=== PATIENT | female | born 1935 | race Caucasian/White ===

== ENCOUNTER → 2020-07-25 | Outpatient (BNVA) | payer MEDICARE, SELFPAY | PROVIDERS: PCP Internal Medicine Endocrinology, Diabetes & Metabolism; Referring Provider Internal Medicine Endocrinology, Diabetes & Metabolism; Visit Provider Internal Medicine Cardiovascular Disease | DX: Z79.01 Long term (current) use of anticoagulants (principal) ==

== ENCOUNTER → 2020-08-22 11:31 | Outpatient (BNVA) | payer MEDICARE, SELFPAY | PROVIDERS: PCP Internal Medicine Endocrinology, Diabetes & Metabolism; Visit Provider Internal Medicine | DX: I48.20 Chronic atrial fibrillation, unspecified (principal); Z51.81 Encounter for therapeutic drug level monitoring; Z79.01 Long term (current) use of anticoagulants | CPT/HCPCS: 85610; 99211 ==

== ENCOUNTER → 2020-09-26 11:41 | Outpatient (BNVA) | payer MEDICARE, SELFPAY | PROVIDERS: PCP Internal Medicine Endocrinology, Diabetes & Metabolism; Visit Provider Internal Medicine | DX: I48.20 Chronic atrial fibrillation, unspecified (principal); Z51.81 Encounter for therapeutic drug level monitoring; Z79.01 Long term (current) use of anticoagulants | CPT/HCPCS: 85610; 99211 ==

== ENCOUNTER → 2020-10-24 11:32 | Outpatient (BNVA) | payer MEDICARE, SELFPAY | PROVIDERS: PCP Internal Medicine Endocrinology, Diabetes & Metabolism; Visit Provider Internal Medicine | DX: I48.20 Chronic atrial fibrillation, unspecified (principal); Z51.81 Encounter for therapeutic drug level monitoring; Z79.01 Long term (current) use of anticoagulants | CPT/HCPCS: 85610; 99211 ==

== ENCOUNTER → 2020-11-21 11:31 | Outpatient (BNVA) | payer MEDICARE, SELFPAY | PROVIDERS: PCP Internal Medicine Endocrinology, Diabetes & Metabolism; Visit Provider Internal Medicine | DX: I48.20 Chronic atrial fibrillation, unspecified (principal); Z51.81 Encounter for therapeutic drug level monitoring; Z79.01 Long term (current) use of anticoagulants | CPT/HCPCS: 85610; 99211 ==

== ENCOUNTER → 2020-12-19 11:31 | Outpatient (BNVA) | payer MEDICARE, SELFPAY | PROVIDERS: PCP Internal Medicine Endocrinology, Diabetes & Metabolism; Visit Provider Internal Medicine | DX: I48.20 Chronic atrial fibrillation, unspecified (principal); Z51.81 Encounter for therapeutic drug level monitoring; Z79.01 Long term (current) use of anticoagulants | CPT/HCPCS: 85610; 99211 ==

== ENCOUNTER → 2021-03-11 11:35 | Outpatient (BNVA) | payer MEDICARE, SELFPAY | PROVIDERS: PCP Internal Medicine Endocrinology, Diabetes & Metabolism; Visit Provider Internal Medicine | DX: I48.20 Chronic atrial fibrillation, unspecified (principal); Z51.81 Encounter for therapeutic drug level monitoring; Z79.01 Long term (current) use of anticoagulants | CPT/HCPCS: 85610; 99211 ==

== ENCOUNTER → 2021-04-08 11:18 | Outpatient (BNVA) | payer MEDICARE, SELFPAY | PROVIDERS: PCP Internal Medicine Endocrinology, Diabetes & Metabolism; Visit Provider Internal Medicine | DX: I48.20 Chronic atrial fibrillation, unspecified (principal); Z51.81 Encounter for therapeutic drug level monitoring; Z79.01 Long term (current) use of anticoagulants | CPT/HCPCS: 85610; 99211 ==

== ENCOUNTER → 2021-05-01 11:32 | Outpatient (BNVA) | payer MEDICARE, SELFPAY | PROVIDERS: PCP Internal Medicine Endocrinology, Diabetes & Metabolism; Visit Provider Internal Medicine | DX: I48.20 Chronic atrial fibrillation, unspecified (principal); Z51.81 Encounter for therapeutic drug level monitoring; Z79.01 Long term (current) use of anticoagulants | CPT/HCPCS: 85610; 99211 ==

== ENCOUNTER → 2021-06-05 11:40 | Outpatient (BNVA) | payer MEDICARE, SELFPAY | PROVIDERS: PCP Internal Medicine Endocrinology, Diabetes & Metabolism; Visit Provider Internal Medicine | DX: I48.20 Chronic atrial fibrillation, unspecified (principal); Z51.81 Encounter for therapeutic drug level monitoring; Z79.01 Long term (current) use of anticoagulants | CPT/HCPCS: 85610; 99211 ==

== ENCOUNTER → 2021-07-02 15:26 | Outpatient (BNVA) | payer MEDICARE, SELFPAY | PROVIDERS: PCP Internal Medicine Endocrinology, Diabetes & Metabolism; Visit Provider Internal Medicine | DX: I48.20 Chronic atrial fibrillation, unspecified (principal); Z51.81 Encounter for therapeutic drug level monitoring; Z79.01 Long term (current) use of anticoagulants | CPT/HCPCS: 85610; 99211 ==

== ENCOUNTER → 2021-07-23 15:47 | Outpatient (BNVA) | payer MEDICARE, SELFPAY | PROVIDERS: PCP Internal Medicine Endocrinology, Diabetes & Metabolism; Visit Provider Internal Medicine | DX: I48.20 Chronic atrial fibrillation, unspecified (principal); Z51.81 Encounter for therapeutic drug level monitoring; Z79.01 Long term (current) use of anticoagulants | CPT/HCPCS: 85610; 99211 ==

== ENCOUNTER → 2021-09-05 15:49 | Outpatient (BNVA) | payer MEDICARE, SELFPAY | PROVIDERS: PCP Internal Medicine Endocrinology, Diabetes & Metabolism; Visit Provider Internal Medicine ==

== ENCOUNTER → 2021-09-08 14:17 | Outpatient (BNVA) | payer MEDICARE, SELFPAY | PROVIDERS: PCP Internal Medicine Endocrinology, Diabetes & Metabolism; Visit Provider Internal Medicine ==

== ENCOUNTER → 2021-09-15 14:24 | Outpatient (BNVA) | payer MEDICARE, SELFPAY | PROVIDERS: PCP Internal Medicine Endocrinology, Diabetes & Metabolism; Visit Provider Internal Medicine ==

== ENCOUNTER → 2021-09-22 11:58 | Outpatient (BNVA) | payer MEDICARE, SELFPAY | PROVIDERS: PCP Internal Medicine Cardiovascular Disease; Visit Provider Internal Medicine | DX: I48.20 Chronic atrial fibrillation, unspecified (principal); Z51.81 Encounter for therapeutic drug level monitoring; Z79.01 Long term (current) use of anticoagulants | CPT/HCPCS: Q3014 ==

== ENCOUNTER → 2021-09-29 16:41 | Outpatient (BNVA) | payer MEDICARE, SELFPAY | PROVIDERS: PCP Internal Medicine Cardiovascular Disease; Visit Provider Internal Medicine | DX: I48.20 Chronic atrial fibrillation, unspecified (principal); Z51.81 Encounter for therapeutic drug level monitoring; Z79.01 Long term (current) use of anticoagulants | CPT/HCPCS: Q3014 ==

== ENCOUNTER → 2021-10-06 15:40 | Outpatient (BNVA) | payer MEDICARE, SELFPAY | PROVIDERS: PCP Internal Medicine Cardiovascular Disease; Visit Provider Internal Medicine | DX: I48.20 Chronic atrial fibrillation, unspecified (principal) | CPT/HCPCS: Q3014 ==

== ENCOUNTER → 2021-10-10 11:36 | Outpatient (BNVA) | payer MEDICARE, SELFPAY | PROVIDERS: PCP Internal Medicine Cardiovascular Disease; Visit Provider Internal Medicine | DX: I48.20 Chronic atrial fibrillation, unspecified (principal) | CPT/HCPCS: Q3014 ==

== ENCOUNTER → 2021-10-15 11:56 | Outpatient (BNVA) | payer MEDICARE, SELFPAY | PROVIDERS: PCP Internal Medicine Cardiovascular Disease; Visit Provider Internal Medicine ==

== ENCOUNTER → 2021-10-22 14:38 | Outpatient (BNVA) | payer MEDICARE, SELFPAY | PROVIDERS: PCP Internal Medicine Cardiovascular Disease; Visit Provider Internal Medicine ==

== ENCOUNTER → 2021-10-29 11:39 | Outpatient (BNVA) | payer MEDICARE, SELFPAY | PROVIDERS: PCP Internal Medicine Cardiovascular Disease; Visit Provider Internal Medicine | DX: I48.20 Chronic atrial fibrillation, unspecified (principal); Z51.81 Encounter for therapeutic drug level monitoring; Z79.01 Long term (current) use of anticoagulants | CPT/HCPCS: Q3014 ==

== ENCOUNTER 2021-11-03 11:41 | Outpatient (REF) | payer MEDICARE, SELFPAY ==
[2021-11-03 14:39] LABS: Alanine Aminotransferase 12 U/L (0-31); Albumin Level 3.5 g/dL (3.5-5.0); Alkaline Phosphatase 96 U/L (39-117); Anion Gap 11 (12-20); Aspartate Amino Transferase 12 U/L (5-31); Bilirubin Total 0.9 mg/dL (0.0-1.0); Blood Urea Nitrogen 13 mg/dL (9-16); Calcium 9.5 mg/dL (8.4-10.2); Carbon Dioxide 30 mmol/L (22-29); Chloride 104 mmol/L (96-108); Estimated Glomerular Filt Rate 54; Glucose Random 102 mg/dL (60-115); Potassium 3.5 mmol/L (3.3-5.1); Sodium 141 mmol/L (135-145); Total Protein 6.6 g/dL (6.5-8.0)
== END 2021-11-03 11:42 | disposition home or self-care (01) ==
LOC: HO.HMGCLNP 11:41
PROVIDERS: Visit Provider Internal Medicine Endocrinology, Diabetes & Metabolism
DX: I11.0 Hypertensive heart disease with heart failure (principal); I50.9 Heart failure, unspecified; I48.20 Chronic atrial fibrillation, unspecified; Z51.81 Encounter for therapeutic drug level monitoring; Z79.01 Long term (current) use of anticoagulants
CPT/HCPCS: 80053; Q3014

== ENCOUNTER → 2021-11-11 15:28 | Outpatient (BNVA) | payer MEDICARE, SELFPAY | PROVIDERS: PCP Internal Medicine Cardiovascular Disease; Visit Provider Internal Medicine | DX: I48.20 Chronic atrial fibrillation, unspecified (principal); Z51.81 Encounter for therapeutic drug level monitoring; Z79.01 Long term (current) use of anticoagulants | CPT/HCPCS: Q3014 ==

== ENCOUNTER → 2021-11-14 15:29 | Outpatient (BNVA) | payer MEDICARE, SELFPAY | PROVIDERS: PCP Internal Medicine Cardiovascular Disease; Visit Provider Internal Medicine | DX: I48.20 Chronic atrial fibrillation, unspecified (principal); Z51.81 Encounter for therapeutic drug level monitoring; Z79.01 Long term (current) use of anticoagulants | CPT/HCPCS: Q3014 ==

== ENCOUNTER → 2021-11-20 14:52 | Outpatient (BNVA) | payer MEDICARE, SELFPAY | PROVIDERS: PCP Internal Medicine Cardiovascular Disease; Visit Provider Internal Medicine | DX: I48.20 Chronic atrial fibrillation, unspecified (principal); Z51.81 Encounter for therapeutic drug level monitoring; Z79.01 Long term (current) use of anticoagulants | CPT/HCPCS: Q3014 ==

== ENCOUNTER → 2021-11-27 14:31 | Outpatient (BNVA) | payer MEDICARE, SELFPAY | PROVIDERS: PCP Internal Medicine Cardiovascular Disease; Visit Provider Internal Medicine | DX: Z13.89 Encounter for screening for other disorder (principal) ==

== ENCOUNTER → 2021-12-04 12:01 | Outpatient (BNVA) | payer MEDICARE, SELFPAY | PROVIDERS: PCP Internal Medicine Cardiovascular Disease; Visit Provider Internal Medicine | DX: I48.20 Chronic atrial fibrillation, unspecified (principal) | CPT/HCPCS: Q3014 ==

== ENCOUNTER → 2021-12-11 14:34 | Outpatient (BNVA) | payer MEDICARE, SELFPAY | PROVIDERS: PCP Internal Medicine Cardiovascular Disease; Visit Provider Internal Medicine | DX: I48.20 Chronic atrial fibrillation, unspecified (principal); Z51.81 Encounter for therapeutic drug level monitoring; Z79.01 Long term (current) use of anticoagulants | CPT/HCPCS: Q3014 ==

== ENCOUNTER → 2021-12-25 12:08 | Outpatient (BNVA) | payer MEDICARE, SELFPAY | PROVIDERS: PCP Internal Medicine Cardiovascular Disease; Visit Provider Internal Medicine | DX: Z13.89 Encounter for screening for other disorder (principal) ==

== ENCOUNTER → 2022-01-08 11:31 | Outpatient (BNVA) | payer MEDICARE, SELFPAY | PROVIDERS: PCP Internal Medicine Cardiovascular Disease; Visit Provider Internal Medicine | DX: Z13.89 Encounter for screening for other disorder (principal) ==

== ENCOUNTER → 2022-01-22 13:57 | Outpatient (BNVA) | payer MEDICARE, SELFPAY | PROVIDERS: PCP Internal Medicine Cardiovascular Disease; Visit Provider Internal Medicine | DX: I48.20 Chronic atrial fibrillation, unspecified (principal); Z51.81 Encounter for therapeutic drug level monitoring; Z79.01 Long term (current) use of anticoagulants | CPT/HCPCS: Q3014 ==

== ENCOUNTER → 2022-01-29 12:12 | Outpatient (BNVA) | payer MEDICARE, SELFPAY | PROVIDERS: PCP Internal Medicine Cardiovascular Disease; Visit Provider Internal Medicine | DX: I48.20 Chronic atrial fibrillation, unspecified (principal); Z51.81 Encounter for therapeutic drug level monitoring; Z79.01 Long term (current) use of anticoagulants | CPT/HCPCS: Q3014 ==

== ENCOUNTER → 2022-02-05 14:29 | Outpatient (BNVA) | payer MEDICARE, SELFPAY | PROVIDERS: PCP Internal Medicine Cardiovascular Disease; Visit Provider Internal Medicine | DX: Z13.89 Encounter for screening for other disorder (principal) ==

== ENCOUNTER → 2022-02-12 11:39 | Outpatient (BNVA) | payer MEDICARE, SELFPAY | PROVIDERS: PCP Internal Medicine Cardiovascular Disease; Visit Provider Internal Medicine | DX: Z13.89 Encounter for screening for other disorder (principal) ==

== ENCOUNTER → 2022-02-19 14:05 | Outpatient (BNVA) | payer MEDICARE, SELFPAY | PROVIDERS: PCP Internal Medicine Cardiovascular Disease; Visit Provider Internal Medicine | DX: Z13.89 Encounter for screening for other disorder (principal) ==

== ENCOUNTER → 2022-02-26 12:17 | Outpatient (BNVA) | payer MEDICARE, SELFPAY | PROVIDERS: PCP Internal Medicine Cardiovascular Disease; Visit Provider Internal Medicine | DX: Z13.89 Encounter for screening for other disorder (principal) ==

== ENCOUNTER → 2022-03-12 15:27 | Outpatient (BNVA) | payer MEDICARE, SELFPAY | PROVIDERS: PCP Internal Medicine Cardiovascular Disease; Visit Provider Internal Medicine | DX: I48.20 Chronic atrial fibrillation, unspecified (principal); Z79.01 Long term (current) use of anticoagulants; Z51.81 Encounter for therapeutic drug level monitoring | CPT/HCPCS: 85610; 99211 ==

== ENCOUNTER → 2022-04-02 15:27 | Outpatient (BNVA) | payer MEDICARE, SELFPAY | PROVIDERS: PCP Internal Medicine Cardiovascular Disease; Visit Provider Internal Medicine | DX: I48.20 Chronic atrial fibrillation, unspecified (principal); Z79.01 Long term (current) use of anticoagulants; Z51.81 Encounter for therapeutic drug level monitoring | CPT/HCPCS: 85610; 99211 ==

== ENCOUNTER → 2022-04-29 14:58 | Outpatient (BNVA) | payer MEDICARE, SELFPAY | PROVIDERS: PCP Internal Medicine Cardiovascular Disease; Visit Provider Internal Medicine | DX: I48.20 Chronic atrial fibrillation, unspecified (principal); Z51.81 Encounter for therapeutic drug level monitoring; Z79.01 Long term (current) use of anticoagulants | CPT/HCPCS: 85610; 99211 ==

== ENCOUNTER → 2022-05-28 15:13 | Outpatient (BNVA) | payer MEDICARE, SELFPAY | PROVIDERS: PCP Internal Medicine Cardiovascular Disease; Visit Provider Internal Medicine | DX: I48.20 Chronic atrial fibrillation, unspecified (principal); Z79.01 Long term (current) use of anticoagulants; Z51.81 Encounter for therapeutic drug level monitoring | CPT/HCPCS: 85610; 99211 ==

== ENCOUNTER → 2022-06-25 15:26 | Outpatient (BNVA) | payer MEDICARE, SELFPAY | PROVIDERS: PCP Internal Medicine Cardiovascular Disease; Visit Provider Internal Medicine | DX: I48.20 Chronic atrial fibrillation, unspecified (principal); Z51.81 Encounter for therapeutic drug level monitoring; Z79.01 Long term (current) use of anticoagulants | CPT/HCPCS: 85610; 99211 ==

== ENCOUNTER → 2022-07-30 15:26 | Outpatient (BNVA) | payer MEDICARE, SELFPAY | PROVIDERS: PCP Internal Medicine Cardiovascular Disease; Visit Provider Internal Medicine | DX: I48.20 Chronic atrial fibrillation, unspecified (principal); Z79.01 Long term (current) use of anticoagulants; Z51.81 Encounter for therapeutic drug level monitoring | CPT/HCPCS: 85610; 99211 ==

== ENCOUNTER → 2022-09-03 15:26 | Outpatient (BNVA) | payer MEDICARE, SELFPAY | PROVIDERS: PCP Internal Medicine Cardiovascular Disease; Visit Provider Internal Medicine | DX: I48.20 Chronic atrial fibrillation, unspecified (principal); Z79.01 Long term (current) use of anticoagulants; Z51.81 Encounter for therapeutic drug level monitoring | CPT/HCPCS: 85610; 99211 ==

== ENCOUNTER → 2022-10-08 15:13 | Outpatient (BNVA) | payer MEDICARE, SELFPAY | PROVIDERS: PCP Internal Medicine Cardiovascular Disease; Visit Provider Internal Medicine | DX: I48.20 Chronic atrial fibrillation, unspecified (principal); Z79.01 Long term (current) use of anticoagulants; Z51.81 Encounter for therapeutic drug level monitoring | CPT/HCPCS: 85610; 99211 ==

== ENCOUNTER → 2022-11-13 15:15 | Outpatient (BNVA) | payer MEDICARE, SELFPAY | PROVIDERS: PCP Internal Medicine Cardiovascular Disease; Visit Provider Internal Medicine | DX: I48.20 Chronic atrial fibrillation, unspecified (principal); Z79.01 Long term (current) use of anticoagulants; Z51.81 Encounter for therapeutic drug level monitoring | CPT/HCPCS: 85610; 99211 ==

== ENCOUNTER → 2022-12-17 15:15 | Outpatient (BNVA) | payer MEDICARE, SELFPAY | PROVIDERS: PCP Internal Medicine Cardiovascular Disease; Visit Provider Internal Medicine | DX: I48.20 Chronic atrial fibrillation, unspecified (principal); Z79.01 Long term (current) use of anticoagulants; Z51.81 Encounter for therapeutic drug level monitoring | CPT/HCPCS: 85610; 99211 ==

== ENCOUNTER → 2023-01-21 15:26 | Outpatient (BNVA) | payer MEDICARE, SELFPAY | PROVIDERS: PCP Internal Medicine Cardiovascular Disease; Visit Provider Internal Medicine | DX: I48.20 Chronic atrial fibrillation, unspecified (principal); Z79.01 Long term (current) use of anticoagulants; Z51.81 Encounter for therapeutic drug level monitoring | CPT/HCPCS: 85610; 99211 ==

== ENCOUNTER → 2023-02-04 15:26 | Outpatient (BNVA) | payer MEDICARE, SELFPAY | PROVIDERS: PCP Internal Medicine Cardiovascular Disease; Visit Provider Internal Medicine | DX: I48.20 Chronic atrial fibrillation, unspecified (principal); Z51.81 Encounter for therapeutic drug level monitoring; Z79.01 Long term (current) use of anticoagulants | CPT/HCPCS: 85610; 99211 ==

== ENCOUNTER → 2023-03-05 15:33 | Outpatient (BNVA) | payer MEDICARE, SELFPAY | PROVIDERS: PCP Internal Medicine Cardiovascular Disease; Visit Provider Internal Medicine | DX: I48.20 Chronic atrial fibrillation, unspecified (principal); Z79.01 Long term (current) use of anticoagulants; Z51.81 Encounter for therapeutic drug level monitoring | CPT/HCPCS: 85610; 99211 ==

== ENCOUNTER → 2023-03-19 15:11 | Outpatient (BNVA) | payer MEDICARE, SELFPAY | PROVIDERS: PCP Internal Medicine Cardiovascular Disease; Visit Provider Internal Medicine | DX: I48.20 Chronic atrial fibrillation, unspecified (principal); Z79.01 Long term (current) use of anticoagulants; Z51.81 Encounter for therapeutic drug level monitoring | CPT/HCPCS: 85610; 99211 ==

== ENCOUNTER → 2023-03-25 15:19 | Outpatient (BNVA) | payer MEDICARE, SELFPAY | PROVIDERS: PCP Internal Medicine Cardiovascular Disease; Visit Provider Internal Medicine | DX: I48.20 Chronic atrial fibrillation, unspecified (principal); Z79.01 Long term (current) use of anticoagulants; Z51.81 Encounter for therapeutic drug level monitoring | CPT/HCPCS: 85610; 99211 ==

== ENCOUNTER → 2023-04-08 15:11 | Outpatient (BNVA) | payer MEDICARE, SELFPAY | PROVIDERS: PCP Internal Medicine Cardiovascular Disease; Visit Provider Internal Medicine | DX: I48.20 Chronic atrial fibrillation, unspecified (principal); Z79.01 Long term (current) use of anticoagulants; Z51.81 Encounter for therapeutic drug level monitoring | CPT/HCPCS: 85610; 99211 ==

== ENCOUNTER 2023-05-06 15:24 | Outpatient (AMB) | payer MEDICARE, SELFPAY ==
--- NOTE | 2023-05-06 15:28 | MHC.OFFVISCO ---
Intake Intake Visit Reasons: Anticoagulation Allergies Penicillins Allergy (Intermediate, Verified 04/08/23 15:12) [facility] Nursing Note INR: 2.5- in therapeutic range Medications and supplements reviewed- taking occ tylenol prn No changes in health, diet, medications, or supplements, Denies any signs and symptoms of bleeding or bruising or clotting. Bleeding, bruising, clotting discussed Nutritional guidance given Dose: 5mg x 3, 2.5mg x 4 F/U INR: pt req 5 weeks Patient verbalizes understanding of instructions given pt with c.o arthritic pain Coding Level of Care Code Est Patient Level 1 Diagnoses Current use of anticoagulant therapy Z79.01 Assessment & Plan Assessment & Plan (1) Current use of anticoagulant therapy: Code(s): Z79.01 - correction (current) use of anticoagulants Category: Medical
[2023-05-06 15:29] LABS: Prothrombin Time Whole Bld POC 30.4 sec (11.1-13.5); ~PT, ~INR - Anti Coag Clinic 2.5 (0.9-1.1)
== END 2023-05-06 15:37 | disposition home or self-care (01) ==
LOC: HO.ACS 15:24
PROVIDERS: PCP Internal Medicine Cardiovascular Disease; Visit Provider Internal Medicine
DX: Z79.01 Long term (current) use of anticoagulants (principal)

== ENCOUNTER → 2023-05-06 15:24 | Outpatient (BNVA) | payer MEDICARE, SELFPAY | PROVIDERS: PCP Internal Medicine Cardiovascular Disease; Visit Provider Internal Medicine | DX: I48.20 Chronic atrial fibrillation, unspecified (principal); Z51.81 Encounter for therapeutic drug level monitoring; Z79.01 Long term (current) use of anticoagulants | CPT/HCPCS: 85610; 99211 ==

== ENCOUNTER 2023-06-10 15:26 | Outpatient (AMB) | payer MEDICARE, SELFPAY ==
[2023-06-10 15:33] LABS: Prothrombin Time Whole Bld POC 46.1 sec (11.1-13.5); ~PT, ~INR - Anti Coag Clinic 3.8 (0.9-1.1)
--- NOTE | 2023-06-10 15:47 | MHC.OFFVISCO ---
Intake Intake Visit Reasons: Anticoagulation Allergies Penicillins Allergy (Intermediate, Verified 06/10/23 15:27) [facility] Medication List - Last Reconciled 06/10/23 by Samantha Mccloud RN levothyroxine 150 mcg PO DAILY metoprolol succinate ER 50 mg PO DAILY nifedipine ER 30 mg PO DAILY [occuvite PO] triamterene-hydrochlorothiazid 37.5-25 mg 1 cap PO DAILY warfarin 2.5 mg See Protocol PO DAILY Nursing Note Amb to [facility] feeling ok Medications and supplements reviewed No changes in health, diet, medications, or supplements, sts she really isn't eating a whole lot Denies any unusual signs and symptoms of bruising, bleeding Denies any new Chest pain, SOB, or clotting INR: 3.8 above therapeutic range Nutritional guidance given: dark leafy greens today and tomorrow, no ho-chunk tomatoes x 2 days then balance greens and reds in diet Dose: hold warfarin today, take 2.5mg tomorrow, 5mg Wednesday then resume usual dosing on Wednesday; 5mg x 3 days and 2.5mg x 4 days F/U INR: 2 weeks Patient verbalizes understanding of instructions given with accurate read back/ teach back of dosing Coding Level of Care Code Est Patient Level 1 Diagnoses Current use of anticoagulant therapy Z79.01 Time Spent (min) 15 Assessment & Plan Assessment & Plan (1) Current use of anticoagulant therapy: 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
== END 2023-06-10 16:19 | disposition home or self-care (01) ==
LOC: HO.ACS 15:26
PROVIDERS: PCP Internal Medicine Cardiovascular Disease; Visit Provider Internal Medicine
DX: Z79.01 Long term (current) use of anticoagulants (principal)

== ENCOUNTER → 2023-06-10 15:26 | Outpatient (BNVA) | payer MEDICARE, SELFPAY | PROVIDERS: PCP Internal Medicine Cardiovascular Disease; Visit Provider Internal Medicine | DX: I48.20 Chronic atrial fibrillation, unspecified (principal); Z79.01 Long term (current) use of anticoagulants; Z51.81 Encounter for therapeutic drug level monitoring | CPT/HCPCS: 85610; 99211 ==

== ENCOUNTER 2023-06-24 15:11 | Outpatient (AMB) | payer MEDICARE, SELFPAY ==
[2023-06-24 15:17] LABS: Prothrombin Time Whole Bld POC 44.3 sec (11.1-13.5); ~PT, ~INR - Anti Coag Clinic 3.7 (0.9-1.1)
--- NOTE | 2023-06-24 15:20 | MHC.OFFVISCO ---
Intake Intake Visit Reasons: Anticoagulation Allergies Penicillins Allergy (Intermediate, Verified 06/10/23 15:27) [facility] Nursing Note INR 3.7-?? out of therapeutic range Medications and supplements reviewed Patient status: pt states diarrhea for approx one month Medications or supplements: was taking melatonin for sleep but d/c due to diarrhea, she states has had diarrhea for approx four weeks- pt instucted to let pcp know this Diet: decreased appetite Denies any signs and symptoms of bleeding or clotting or unusual bruising Bleeding, bruising, clotting discussed - aware at risk for bleeding Nutritional guidance given: eat greens to lower inr, no reds for 2 days Dose: hold dose today- reduce weekly dosing to 5mg x 2, 2.5mg x 5 F/U INR Date : 2 weeks?? Patient verbalizing understanding of instructions given. 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
[2023-06-24 15:21] LABS: Prothrombin Time Whole Bld POC 44.2 sec (11.1-13.5); ~PT, ~INR - Anti Coag Clinic 3.7 (0.9-1.1)
== END 2023-06-24 15:33 | disposition home or self-care (01) ==
LOC: HO.ACS 15:11
PROVIDERS: PCP Internal Medicine Cardiovascular Disease; Visit Provider Internal Medicine
DX: Z79.01 Long term (current) use of anticoagulants (principal)

== ENCOUNTER → 2023-06-24 15:11 | Outpatient (BNVA) | payer MEDICARE, SELFPAY | PROVIDERS: PCP Internal Medicine Cardiovascular Disease; Visit Provider Internal Medicine | DX: I48.20 Chronic atrial fibrillation, unspecified (principal); Z79.01 Long term (current) use of anticoagulants; Z51.81 Encounter for therapeutic drug level monitoring | CPT/HCPCS: 85610; 99211 ==

== ENCOUNTER → 2023-07-08 15:07 | Outpatient (AMB) | payer MEDICARE, SELFPAY ==
[2023-07-08 15:16] LABS: Prothrombin Time Whole Bld POC 37.8 sec (11.1-13.5); ~PT, ~INR - Anti Coag Clinic 3.1 (0.9-1.1)
--- NOTE | 2023-07-08 15:19 | MHC.OFFVISCO ---
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) sts she falls asleep in chair after dinner and then wakes up and is unable to go back to sleep reviewed strategies to promote sleep, turn off devices (plays games on tablet), find an activity to do after dinner that will keep her out of chair (clean a bathroom, or something like that) sleepy time tea when settling in for the night, sts she stopped the melatonin as it really didn't work that great, and it gave me disrrhea Medications and supplements reviewed No other changes in health, diet, medications, or supplements Denies any unusual signs and symptoms of bruising, bleeding Denies any new Chest pain, SOB, or clotting INR: 3.1 closer to therapeutic range, recent weekly dosing decrease Nutritional guidance given: balance greens and reds in diet Dose: continue new dosing;5mg x 2 days and 2.5mg x 5 days F/U INR: 2 weeks Patient verbalizes understanding of instructions given with accurate read back/ teach back of dosing Coding Level of Care Code Est Patient Level 1 Diagnoses Current use of anticoagulant therapy Z79.01 Time Spent (min) 15 Assessment & Plan Assessment & Plan (1) Current use of anticoagulant therapy: 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
== END ==
PROVIDERS: PCP Internal Medicine Cardiovascular Disease; Visit Provider Internal Medicine
DX: Z79.01 Long term (current) use of anticoagulants (principal)

== ENCOUNTER → 2023-07-08 15:07 | Outpatient (BNVA) | payer MEDICARE, SELFPAY | PROVIDERS: PCP Internal Medicine Cardiovascular Disease; Visit Provider Internal Medicine | DX: I48.20 Chronic atrial fibrillation, unspecified (principal); Z79.01 Long term (current) use of anticoagulants; Z51.81 Encounter for therapeutic drug level monitoring | CPT/HCPCS: 85610; 99211 ==

== ENCOUNTER 2023-07-22 15:13 | Outpatient (AMB) | payer MEDICARE, SELFPAY ==
--- NOTE | 2023-07-22 15:17 | MHC.OFFVISCO ---
Intake Intake Visit Reasons: Anticoagulation Allergies Penicillins Allergy (Intermediate, Verified 07/22/23 15:13) [facility] Medication List - Last Reconciled 07/22/23 by Catie Romero RN levothyroxine 150 mcg PO DAILY metoprolol succinate ER 50 mg PO DAILY nifedipine ER 30 mg PO DAILY [occuvite PO] triamterene-hydrochlorothiazid 37.5-25 mg 1 cap PO DAILY warfarin 2.5 mg See Protocol PO DAILY Nursing Note INR: 2.9- in therapeutic range Medications and supplements reviewed- no changes No changes in health, diet, medications, or supplements, Denies any signs and symptoms of bleeding or bruising or clotting. 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
[2023-07-22 15:19] LABS: Prothrombin Time Whole Bld POC 34.5 sec (11.1-13.5); ~PT, ~INR - Anti Coag Clinic 2.9 (0.9-1.1)
== END 2023-07-22 15:53 | disposition home or self-care (01) ==
LOC: HO.ACS 15:13
PROVIDERS: PCP Internal Medicine Cardiovascular Disease; Visit Provider Internal Medicine
DX: Z79.01 Long term (current) use of anticoagulants (principal)

== ENCOUNTER → 2023-07-22 15:13 | Outpatient (BNVA) | payer MEDICARE, SELFPAY | PROVIDERS: PCP Internal Medicine Cardiovascular Disease; Visit Provider Internal Medicine | DX: I48.20 Chronic atrial fibrillation, unspecified (principal); Z79.01 Long term (current) use of anticoagulants; Z51.81 Encounter for therapeutic drug level monitoring | CPT/HCPCS: 85610; 99211 ==

== ENCOUNTER 2023-08-12 15:08 | Outpatient (AMB) | payer MEDICARE, SELFPAY ==
--- NOTE | 2023-08-12 15:13 | MHC.OFFVISCO ---
Intake Intake Visit Reasons: Anticoagulation Allergies Penicillins Allergy (Intermediate, Verified 08/12/23 15:09) [facility] Medication List - Last Reconciled 08/12/23 by Catie Romero RN levothyroxine 150 mcg PO DAILY metoprolol succinate ER 50 mg PO DAILY nifedipine ER 30 mg PO DAILY [occuvite PO] triamterene-hydrochlorothiazid 37.5-25 mg 1 cap PO DAILY warfarin 2.5 mg See Protocol PO DAILY Nursing Note INR: 2.4- in therapeutic range 2-3 Medications and supplements reviewed- no changes does not get flu vaccine or covid vaccine No changes in health, diet, medications, or supplements, Denies any signs and symptoms of bleeding or bruising or clotting. Bleeding, bruising, clotting discussed Nutritional guidance given Dose: 5mg x 2, 2.5mg x 5 F/U INR: 4 weeks Patient verbalizes understanding of instructions given Coding Level of Care Code Est Patient Level 1 Diagnoses Current use of anticoagulant therapy Z79.01 Assessment & Plan Assessment & Plan (1) Current use of anticoagulant therapy: Code(s): Z79.01 - snf (current) use of anticoagulants Category: Medical
[2023-08-12 15:15] LABS: Prothrombin Time Whole Bld POC 29.3 sec (11.1-13.5); ~PT, ~INR - Anti Coag Clinic 2.4 (0.9-1.1)
== END 2023-08-12 15:22 | disposition home or self-care (01) ==
LOC: HO.ACS 15:08
PROVIDERS: PCP Internal Medicine Cardiovascular Disease; Visit Provider Internal Medicine
DX: Z79.01 Long term (current) use of anticoagulants (principal)

== ENCOUNTER → 2023-08-12 15:08 | Outpatient (BNVA) | payer MEDICARE, SELFPAY | PROVIDERS: PCP Internal Medicine Cardiovascular Disease; Visit Provider Internal Medicine | DX: I48.20 Chronic atrial fibrillation, unspecified (principal); Z79.01 Long term (current) use of anticoagulants; Z51.81 Encounter for therapeutic drug level monitoring | CPT/HCPCS: 85610; 99211 ==

== ENCOUNTER 2023-09-09 15:24 | Outpatient (AMB) | payer MEDICARE, SELFPAY ==
[2023-09-09 15:31] LABS: Prothrombin Time Whole Bld POC 34.2 sec (11.1-13.5); ~PT, ~INR - Anti Coag Clinic 2.8 (0.9-1.1)
--- NOTE | 2023-09-09 15:31 | MHC.OFFVISCO ---
Intake Intake Visit Reasons: Anticoagulation Allergies Penicillins Allergy (Intermediate, Verified 09/09/23 15:25) [facility] Medication List - Last Reconciled 09/09/23 by Catie Romero RN levothyroxine 150 mcg PO DAILY metoprolol succinate ER 50 mg PO DAILY nifedipine ER 30 mg PO DAILY [occuvite PO] warfarin 2.5 mg See Protocol PO DAILY Nursing Note INR: 2.8- in therapeutic range of 2-3 Medications and supplements reviewed- pt states finishing nitrofurantoin for uti tomm. no interaction with warfarin per micromedex No changes in health, diet, medications, or supplements, Denies any signs and symptoms of bleeding or bruising or clotting. 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
== END 2023-09-09 15:37 | disposition home or self-care (01) ==
LOC: HO.ACS 15:24
PROVIDERS: PCP Internal Medicine Cardiovascular Disease; Visit Provider Internal Medicine
DX: Z79.01 Long term (current) use of anticoagulants (principal)

== ENCOUNTER → 2023-09-09 15:24 | Outpatient (BNVA) | payer MEDICARE, SELFPAY | PROVIDERS: PCP Internal Medicine Cardiovascular Disease; Visit Provider Internal Medicine | DX: I48.20 Chronic atrial fibrillation, unspecified (principal); Z79.01 Long term (current) use of anticoagulants; Z51.81 Encounter for therapeutic drug level monitoring | CPT/HCPCS: 85610; 99211 ==

== ENCOUNTER 2023-10-07 15:14 | Outpatient (AMB) | payer MEDICARE, SELFPAY ==
[2023-10-07 15:21] LABS: Prothrombin Time Whole Bld POC 41.8 sec (11.1-13.5); ~PT, ~INR - Anti Coag Clinic 3.5 (0.9-1.1)
--- NOTE | 2023-10-07 15:28 | MHC.OFFVISCO ---
Intake Intake Visit Reasons: Anticoagulation Allergies Penicillins Allergy (Intermediate, Verified 10/07/23 15:15) [facility] Medication List - Last Reconciled 10/07/23 by Alondra Hdz RN levothyroxine 150 mcg PO DAILY metoprolol succinate ER 50 mg PO DAILY nifedipine ER 30 mg PO DAILY nitrofurantoin monohyd/m-cryst 100 mg 1 cap PO BID [occuvite PO] triamterene-hydrochlorothiazid 37.5-25 mg 1 cap PO DAILY warfarin 2.5 mg See Protocol PO DAILY Nursing Note INR: 3.5 OUT OF therapeutic range Medications and supplements reviewed LITTLE SAD GOING THROUGH HOLIDAYS WITH OUT SPOUSE THIS YEAR, HAD MORE FOODS THAT RAISE THE INR S/P THANKSGIVING AND HOLIDAY FOODS Denies any signs and symptoms of bleeding or bruising or clotting. 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
== END 2023-10-07 15:38 | disposition home or self-care (01) ==
LOC: HO.ACS 15:14
PROVIDERS: PCP Internal Medicine Cardiovascular Disease; Visit Provider Internal Medicine
DX: Z79.01 Long term (current) use of anticoagulants (principal)

== ENCOUNTER → 2023-10-07 15:14 | Outpatient (BNVA) | payer MEDICARE, SELFPAY | PROVIDERS: PCP Internal Medicine Cardiovascular Disease; Visit Provider Internal Medicine | DX: I48.20 Chronic atrial fibrillation, unspecified (principal); Z79.01 Long term (current) use of anticoagulants; Z51.81 Encounter for therapeutic drug level monitoring | CPT/HCPCS: 85610; 99211 ==

== ENCOUNTER 2023-11-04 15:14 | Outpatient (AMB) | payer MEDICARE, SELFPAY ==
--- NOTE | 2023-11-04 15:18 | MHC.OFFVISCO ---
Intake Intake Visit Reasons: Anticoagulation Allergies Penicillins Allergy (Intermediate, Verified 10/07/23 15:15) [facility] Nursing Note INR: 2.5- in therapeutic range of 2-3 Medications and supplements reviewed- no changes No changes in health, diet, medications, or supplements, Denies any signs and symptoms of bleeding or bruising or clotting. 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
[2023-11-05 08:53] LABS: Prothrombin Time Whole Bld POC 29.7 sec (11.1-13.5); ~PT, ~INR - Anti Coag Clinic 2.5 (0.9-1.1)
== END 2023-11-04 15:21 | disposition home or self-care (01) ==
LOC: HO.ACS 15:14
PROVIDERS: PCP Internal Medicine Cardiovascular Disease; Visit Provider Internal Medicine
DX: Z79.01 Long term (current) use of anticoagulants (principal)

== ENCOUNTER → 2023-11-04 15:14 | Outpatient (BNVA) | payer MEDICARE, SELFPAY | PROVIDERS: PCP Internal Medicine Cardiovascular Disease; Visit Provider Internal Medicine | DX: I48.20 Chronic atrial fibrillation, unspecified (principal); Z79.01 Long term (current) use of anticoagulants; Z51.81 Encounter for therapeutic drug level monitoring | CPT/HCPCS: 85610; 99211 ==

== ENCOUNTER 2023-12-02 15:22 | Outpatient (AMB) | payer MEDICARE, SELFPAY ==
[2023-12-02 15:27] LABS: Prothrombin Time Whole Bld POC 38.2 sec (11.1-13.5); ~PT, ~INR - Anti Coag Clinic 3.2 (0.9-1.1)
--- NOTE | 2023-12-02 15:44 | MHC.OFFVISCO ---
Intake Intake Visit Reasons: Anticoagulation Allergies Penicillins Allergy (Intermediate, Verified 10/07/23 15:15) [facility] Medication List - Last Reconciled 12/02/23 by Alondra Hdz RN levothyroxine 150 mcg PO DAILY metoprolol succinate ER 50 mg PO DAILY nifedipine ER 30 mg PO DAILY [occuvite PO] triamterene-hydrochlorothiazid 37.5-25 mg 1 cap PO DAILY warfarin 2.5 mg See Protocol PO DAILY Nursing Note INR 3.2? out of therapeutic range Medications and supplements reviewed Patient status: OVERALL EATING LESS BUT HAS BEEN EATING MORE GREENS, EXPLAINED LESS PROTEIN CAN RAISE THE INR AND EATING LESS IN GENERAL CAN RAISE THE INR , EATING ONLY 1 MEAL / DAY AND COFFEE IN THE AM Medications or supplements: NO CHANGES Diet: GOOD BUT LESS Denies any signs and symptoms of bleeding or clotting or unusual bruising Bleeding, bruising, clotting discussed Nutritional guidance given: EAT 1 SERVING OF PROTEIN IN AM LIKE OATMEAL 1 DAY, EGGS ANOTHER DAY THEN YOGURT ALTERNATING - KEEP UP WEEKLY GREENS, COOKED GREENS LOWER YOUR INR MORE THAN RAW Dose: 5MG X 1 DAY THIS WEEK THEN 5MG X 2DAYS/ 2.5MG X 5 DAYS SO SHE HAS TIME TO ARRANGE MEALS F/U INR Date : 4 WEEKS PER PT REQUEST DUE TO TRANSPORTATION ?? Patient verbalizing understanding of instructions given. 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
== END 2023-12-02 15:48 | disposition home or self-care (01) ==
LOC: HO.ACS 15:22
PROVIDERS: PCP Internal Medicine Cardiovascular Disease; Visit Provider Internal Medicine
DX: Z79.01 Long term (current) use of anticoagulants (principal)

== ENCOUNTER → 2023-12-02 15:22 | Outpatient (BNVA) | payer MEDICARE, SELFPAY | PROVIDERS: PCP Internal Medicine Cardiovascular Disease; Visit Provider Internal Medicine | DX: I48.20 Chronic atrial fibrillation, unspecified (principal); Z79.01 Long term (current) use of anticoagulants; Z51.81 Encounter for therapeutic drug level monitoring | CPT/HCPCS: 85610; 99211 ==

== ENCOUNTER 2023-12-29 15:22 | Outpatient (AMB) | payer MEDICARE, SELFPAY ==
[2023-12-29 15:27] LABS: ~PT, ~INR - Anti Coag Clinic 2.2 (0.9-1.1)
--- NOTE | 2023-12-29 15:31 | MHC.OFFVISCO ---
Intake Intake Visit Reasons: Anticoagulation Allergies Penicillins Allergy (Intermediate, Verified 12/29/23 15:22) [facility] Medication List - Last Reconciled 12/29/23 by Idania Coronado RN levothyroxine 150 mcg PO DAILY metoprolol succinate ER 50 mg PO DAILY nifedipine ER 30 mg PO DAILY [occuvite PO] triamterene-hydrochlorothiazid 37.5-25 mg 1 cap PO DAILY warfarin 2.5 mg See Protocol PO DAILY Nursing Note NO CP,SOB,DIET/MED CHANGES,FALLS OR SX OF BLEEDING. CONTINUE PRESENT DOSING AND FOLLOW-UP MIN 4 WEEKS. GOOD UNDERSTANDING OF DOSING INSTR. 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
== END 2023-12-29 15:34 | disposition home or self-care (01) ==
LOC: HO.ACS 15:22
PROVIDERS: PCP Internal Medicine Cardiovascular Disease; Visit Provider Internal Medicine
DX: Z79.01 Long term (current) use of anticoagulants (principal)

== ENCOUNTER → 2023-12-29 15:22 | Outpatient (BNVA) | payer MEDICARE, SELFPAY | PROVIDERS: PCP Internal Medicine Cardiovascular Disease; Visit Provider Internal Medicine | DX: I48.20 Chronic atrial fibrillation, unspecified (principal); Z79.01 Long term (current) use of anticoagulants; Z51.81 Encounter for therapeutic drug level monitoring | CPT/HCPCS: 85610; 99211 ==

== ENCOUNTER 2024-01-27 15:26 | Outpatient (AMB) | payer MEDICARE, SELFPAY ==
[2024-01-27 15:55] LABS: Prothrombin Time Whole Bld POC 38.3 sec (11.1-13.5); ~PT, ~INR - Anti Coag Clinic 3.2 (0.9-1.1)
--- NOTE | 2024-01-27 16:15 | MHC.OFFVISCO ---
Intake Intake Visit Reasons: Anticoagulation Allergies Penicillins Allergy (Intermediate, Verified 01/27/24 15:50) [facility] Medication List - Last Reconciled 01/27/24 by Samantha Potter RN levothyroxine 150 mcg PO DAILY metoprolol succinate ER 50 mg PO DAILY nifedipine ER 30 mg PO DAILY [occuvite PO] triamterene-hydrochlorothiazid 37.5-25 mg 1 cap PO DAILY warfarin 2.5 mg See Protocol PO DAILY Nursing Note INR 3.2 out of therapeutic range of 2-3 Medications and supplements reviewed: no changes Patient status: well, only complaint is not sleeping well and has taken a 1/2 shot of jesenia before bed which helps her sleep Medications or supplements: no change Diet: no change Denies any signs and symptoms of bleeding or clotting or unusual bruising Bleeding, bruising, clotting discussed Nutritional guidance given: to have a serving greens today and tomorrow then to balance. Pt is aware alcohol is a raiser of the INR. Dose: 5mg X 2 days and 2.5mg X 5 days F/U INR Date : 4 weeks?? Patient verbalizing understanding of instructions given. 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
== END 2024-01-27 16:25 | disposition home or self-care (01) ==
LOC: HO.ACS 15:26
PROVIDERS: PCP Internal Medicine Cardiovascular Disease; Visit Provider Internal Medicine
DX: Z79.01 Long term (current) use of anticoagulants (principal)

== ENCOUNTER → 2024-01-27 15:26 | Outpatient (BNVA) | payer MEDICARE, SELFPAY | PROVIDERS: PCP Internal Medicine Cardiovascular Disease; Visit Provider Internal Medicine | DX: I48.20 Chronic atrial fibrillation, unspecified (principal); Z79.01 Long term (current) use of anticoagulants; Z51.81 Encounter for therapeutic drug level monitoring | CPT/HCPCS: 85610; 99211 ==

== ENCOUNTER 2024-02-24 15:30 | Outpatient (AMB) | payer MEDICARE, SELFPAY ==
[2024-02-24 15:50] LABS: Prothrombin Time Whole Bld POC 44.2 sec (11.1-13.5); ~PT, ~INR - Anti Coag Clinic 3.7 (0.9-1.1)
--- NOTE | 2024-02-24 16:07 | MHC.OFFVISCO ---
Intake Intake Visit Reasons: Anticoagulation Allergies Penicillins Allergy (Intermediate, Verified 02/24/24 15:35) [facility] Medication List - Last Reconciled 02/24/24 by Samantha Potter RN levothyroxine 150 mcg PO DAILY metoprolol succinate ER 50 mg PO DAILY nifedipine ER 30 mg PO DAILY [occuvite PO] triamterene-hydrochlorothiazid 37.5-25 mg 1 cap PO DAILY warfarin 2.5 mg See Protocol PO DAILY Nursing Note INR 3.7 out of therapeutic range Medications and supplements reviewed Patient status: FEELS WELL Medications or supplements: NO NEW Diet: PT NOT EATING WELL, STATES TRYING TO LOSE WEIGHT. WILL ONLY HAVE A YOGURT IN AM AND NOT EAT UNTIL SUPPER Denies any signs and symptoms of bleeding or clotting or unusual bruising Bleeding, bruising, clotting discussed Nutritional guidance given: TO USE BOOST OR ENSURE SUPPLEMENT IN THE AM Dose: DOSE HELD TODAY (2.5MG) THEN RESUME USUAL DOSE OF 2.5MG DAILY EXCEPT ON WEDNESDAYS 5MG F/U INR Date : 1 WEEK?? Patient verbalizing understanding of instructions given. 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
== END 2024-02-24 16:16 | disposition home or self-care (01) ==
LOC: HO.ACS 15:30
PROVIDERS: PCP Internal Medicine Cardiovascular Disease; Visit Provider Internal Medicine
DX: Z79.01 Long term (current) use of anticoagulants (principal)

== ENCOUNTER → 2024-02-24 15:30 | Outpatient (BNVA) | payer MEDICARE, SELFPAY | PROVIDERS: PCP Internal Medicine Cardiovascular Disease; Visit Provider Internal Medicine | DX: I48.20 Chronic atrial fibrillation, unspecified (principal); Z51.81 Encounter for therapeutic drug level monitoring; Z79.01 Long term (current) use of anticoagulants | CPT/HCPCS: 85610; 99211 ==

== ENCOUNTER 2024-03-02 15:20 | Outpatient (AMB) | payer MEDICARE, SELFPAY ==
[2024-03-02 15:27] LABS: Prothrombin Time Whole Bld POC 19.7 sec (11.1-13.5); ~PT, ~INR - Anti Coag Clinic 1.6 (0.9-1.1)
--- NOTE | 2024-03-02 15:38 | MHC.OFFVISCO ---
Intake Intake Visit Reasons: Anticoagulation Allergies Penicillins Allergy (Intermediate, Verified 03/02/24 15:21) [facility] Medication List - Last Reconciled 03/02/24 by Samantha Potter RN levothyroxine 150 mcg PO DAILY metoprolol succinate ER 50 mg PO DAILY nifedipine ER 30 mg PO DAILY [occuvite PO] warfarin 2.5 mg See Protocol PO DAILY Nursing Note INR 1.6? out of therapeutic range of 2-3 Medications and supplements reviewed: no changes Patient status: well Medications or supplements: no changes Diet: has had a lot of greens because INR was high last week. ALso has been taking supplement Boost which can lower INR Denies any signs and symptoms of bleeding or clotting or unusual bruising Bleeding, bruising, clotting discussed Nutritional guidance given: to avoid greens today and tomorrow Dose: today's dose increased to 5 mg (2.5mg) then resume usual dose of 5mg X 2 days and 2.5mg X 5 days F/U INR Date : 1 week?? Patient verbalizing understanding of instructions given. 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
== END 2024-03-02 15:44 | disposition home or self-care (01) ==
LOC: HO.ACS 15:20
PROVIDERS: PCP Internal Medicine Cardiovascular Disease; Visit Provider Internal Medicine
DX: Z79.01 Long term (current) use of anticoagulants (principal)

== ENCOUNTER → 2024-03-02 15:20 | Outpatient (BNVA) | payer MEDICARE, SELFPAY | PROVIDERS: PCP Internal Medicine Cardiovascular Disease; Visit Provider Internal Medicine | DX: I48.20 Chronic atrial fibrillation, unspecified (principal); Z79.01 Long term (current) use of anticoagulants; Z51.81 Encounter for therapeutic drug level monitoring | CPT/HCPCS: 85610; 99211 ==

== ENCOUNTER 2024-03-09 15:31 | Outpatient (AMB) | payer MEDICARE, SELFPAY ==
[2024-03-09 15:40] LABS: Prothrombin Time Whole Bld POC 35.2 sec (11.1-13.5); ~PT, ~INR - Anti Coag Clinic 2.9 (0.9-1.1)
--- NOTE | 2024-03-09 15:49 | MHC.OFFVISCO ---
Intake Intake Visit Reasons: Anticoagulation Allergies Penicillins Allergy (Intermediate, Verified 03/09/24 15:31) [facility] Medication List - Last Reconciled 03/09/24 by Alondra Hdz RN levothyroxine 150 mcg PO DAILY metoprolol succinate ER 50 mg PO DAILY nifedipine ER 30 mg PO DAILY [occuvite PO] warfarin 2.5 mg See Protocol PO DAILY Nursing Note INR: 2.9 in therapeutic range- States md holding one of her b/p meds for lower b/p forgot name and will call it in tomorrow. reminded son. Medications and supplements reviewed No changes in health, diet, medications, or supplements, Denies any signs and symptoms of bleeding or bruising or clotting. 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
== END 2024-03-09 15:52 | disposition home or self-care (01) ==
LOC: HO.ACS 15:31
PROVIDERS: PCP Internal Medicine Cardiovascular Disease; Visit Provider Internal Medicine
DX: Z79.01 Long term (current) use of anticoagulants (principal)

== ENCOUNTER → 2024-03-09 15:31 | Outpatient (BNVA) | payer MEDICARE, SELFPAY | PROVIDERS: PCP Internal Medicine Cardiovascular Disease; Visit Provider Internal Medicine | DX: I48.20 Chronic atrial fibrillation, unspecified (principal); Z51.81 Encounter for therapeutic drug level monitoring; Z79.01 Long term (current) use of anticoagulants | CPT/HCPCS: 85610; 99211 ==

== ENCOUNTER 2024-03-23 15:28 | Outpatient (AMB) | payer MEDICARE, SELFPAY ==
--- NOTE | 2024-03-23 15:34 | MHC.OFFVISCO ---
Intake Intake Visit Reasons: Anticoagulation Allergies Penicillins Allergy (Intermediate, Verified 03/23/24 15:28) [facility] Medication List - Last Reconciled 03/23/24 by Catie Romero RN levothyroxine 150 mcg PO DAILY metoprolol succinate ER 50 mg PO DAILY nifedipine ER 30 mg PO DAILY [occuvite PO] warfarin 2.5 mg See Protocol PO DAILY Nursing Note INR 3.5-? out of therapeutic range of 2-3 Medications and supplements reviewed Patient status: c.o insomnia, taking occ jesenia at night Medications or supplements: off bp med per md but does not know name, instructed to call acs with name of med Diet: appetite fair Denies any signs and symptoms of bleeding or clotting or unusual bruising Bleeding, bruising, clotting discussed Nutritional guidance given: eat greens to lower Dose: hold dose today then 5mg x 2, 2.5mg x 5 F/U INR Date : 2 weeks Patient verbalizing understanding of instructions given. 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
[2024-03-23 15:35] LABS: Prothrombin Time Whole Bld POC 41.8 sec (11.1-13.5); ~PT, ~INR - Anti Coag Clinic 3.5 (0.9-1.1)
== END 2024-03-23 15:43 | disposition home or self-care (01) ==
LOC: HO.ACS 15:28
PROVIDERS: PCP Internal Medicine Cardiovascular Disease; Visit Provider Internal Medicine
DX: Z79.01 Long term (current) use of anticoagulants (principal)

== ENCOUNTER → 2024-03-23 15:28 | Outpatient (BNVA) | payer MEDICARE, SELFPAY | PROVIDERS: PCP Internal Medicine Cardiovascular Disease; Visit Provider Internal Medicine | DX: I48.20 Chronic atrial fibrillation, unspecified (principal); Z79.01 Long term (current) use of anticoagulants; Z51.81 Encounter for therapeutic drug level monitoring | CPT/HCPCS: 85610; 99211 ==

== ENCOUNTER 2024-04-06 15:23 | Outpatient (AMB) | payer MEDICARE, SELFPAY ==
--- NOTE | 2024-04-06 15:30 | MHC.OFFVISCO ---
Intake Intake Visit Reasons: Anticoagulation Allergies Penicillins Allergy (Intermediate, Verified 04/06/24 15:24) [facility] Medication List - Last Reconciled 04/06/24 by Catie Romero RN levothyroxine 150 mcg PO DAILY metoprolol succinate ER 50 mg PO DAILY nifedipine ER 30 mg PO DAILY [occuvite PO] warfarin 2.5 mg See Protocol PO DAILY Nursing Note INR: 2.6- in therapeutic range of 2-3 Medications and supplements reviewed- med list reviewed No changes in health, diet, medications, or supplements, Denies any signs and symptoms of bleeding or bruising or clotting. Bleeding, bruising, clotting discussed Nutritional guidance given Dose: 5mg x 2, 2.5mg x 5 F/U INR: 3 weeks Patient verbalizes understanding of instructions given Coding Level of Care Code Est Patient Level 1 Diagnoses Current use of anticoagulant therapy Z79.01 Assessment & Plan Assessment & Plan (1) Current use of anticoagulant therapy: Code(s): Z79.01 - [facility] (current) use of anticoagulants Category: Medical Medications: New triamterene-hydrochlorothiazid 37.5-25 mg 1 cap PO DAILY
[2024-04-06 15:32] LABS: Prothrombin Time Whole Bld POC 31.5 sec (11.1-13.5); ~PT, ~INR - Anti Coag Clinic 2.6 (0.9-1.1)
== END 2024-04-06 15:53 | disposition home or self-care (01) ==
LOC: HO.ACS 15:23
PROVIDERS: PCP Internal Medicine Cardiovascular Disease; Visit Provider Internal Medicine
DX: Z79.01 Long term (current) use of anticoagulants (principal)

== ENCOUNTER → 2024-04-06 15:23 | Outpatient (BNVA) | payer MEDICARE, SELFPAY | PROVIDERS: PCP Internal Medicine Cardiovascular Disease; Visit Provider Internal Medicine | DX: I48.20 Chronic atrial fibrillation, unspecified (principal); Z79.01 Long term (current) use of anticoagulants; Z51.81 Encounter for therapeutic drug level monitoring | CPT/HCPCS: 85610; 99211 ==

== ENCOUNTER 2024-05-11 15:09 | Outpatient (AMB) | payer MEDICARE, SELFPAY ==
--- NOTE | 2024-05-11 15:27 | MHC.OFFVISCO ---
Intake Intake Visit Reasons: Anticoagulation Allergies Penicillins Allergy (Intermediate, Verified 05/11/24 15:12) [facility] Medication List - Last Reconciled 05/11/24 by Alondra Hdz RN levothyroxine 150 mcg PO DAILY metoprolol succinate ER 50 mg PO DAILY nifedipine ER 30 mg PO DAILY [occuvite PO] triamterene-hydrochlorothiazid 37.5-25 mg 1 cap PO DAILY warfarin 2.5 mg See Protocol PO DAILY Nursing Note INR: 3.0 in therapeutic range Medications and supplements reviewed No changes in health, diet, medications, or supplements, Denies any signs and symptoms of bleeding or bruising or clotting. 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
[2024-05-11 15:28] LABS: Prothrombin Time Whole Bld POC 35.4 sec (11.1-13.5)
== END 2024-05-11 15:30 | disposition home or self-care (01) ==
PROVIDERS: PCP Internal Medicine; Visit Provider Internal Medicine
DX: Z79.01 Long term (current) use of anticoagulants (principal)

== ENCOUNTER → 2024-05-11 15:09 | Outpatient (BNVA) | payer MEDICARE, SELFPAY | PROVIDERS: PCP Internal Medicine Cardiovascular Disease; Visit Provider Internal Medicine | DX: I48.20 Chronic atrial fibrillation, unspecified (principal); Z79.01 Long term (current) use of anticoagulants; Z51.81 Encounter for therapeutic drug level monitoring | CPT/HCPCS: 85610; 99211 ==

== ENCOUNTER 2024-06-06 15:12 | Outpatient (AMB) | payer MEDICARE, SELFPAY ==
[2024-06-06 15:20] LABS: Prothrombin Time Whole Bld POC 45.2 sec (11.1-13.5); ~PT, ~INR - Anti Coag Clinic 3.8 (0.9-1.1)
--- NOTE | 2024-06-06 15:47 | MHC.OFFVISCO ---
Intake Intake Visit Reasons: Anticoagulation Allergies Penicillins Allergy (Intermediate, Verified 06/06/24 15:12) [facility] Medication List - Last Reconciled 06/06/24 by Samantha Potter RN levothyroxine 150 mcg PO DAILY metoprolol succinate ER 50 mg PO DAILY nifedipine ER 30 mg PO DAILY [occuvite PO] triamterene-hydrochlorothiazid 37.5-25 mg 1 cap PO DAILY warfarin 2.5 mg See Protocol PO DAILY Nursing Note INR 3.8?out of therapeutic range of 2-3 Medications and supplements reviewed: no changes Patient status: feels well Medications or supplements: no changes Diet: usual diet for pt Denies any signs and symptoms of bleeding or clotting or unusual bruising Bleeding, bruising, clotting discussed. Pt understands her blood is thin \and she is at an increased risk for bleeding. Nutritional guidance given: to have a serving of greens today Dose: hold today's dose of 2.5mg then decrease weekly dose by 2.5mg starting tomorrow so pt will be on 5mg X 1 day and 2.5mg X 6 days F/U INR Date : 2 weeks?? Patient verbalizing understanding of instructions given. 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
== END 2024-06-06 15:50 | disposition home or self-care (01) ==
LOC: HO.ACS 15:12
PROVIDERS: PCP Internal Medicine; Visit Provider Internal Medicine
DX: Z79.01 Long term (current) use of anticoagulants (principal)

== ENCOUNTER → 2024-06-06 15:12 | Outpatient (BNVA) | payer MEDICARE, SELFPAY | PROVIDERS: PCP Internal Medicine; Visit Provider Internal Medicine | DX: I48.20 Chronic atrial fibrillation, unspecified (principal); Z79.01 Long term (current) use of anticoagulants; Z51.81 Encounter for therapeutic drug level monitoring | CPT/HCPCS: 85610; 99211 ==

== ENCOUNTER 2024-06-22 15:31 | Outpatient (AMB) | payer MEDICARE, SELFPAY ==
--- NOTE | 2024-06-22 15:45 | MHC.OFFVISCO ---
Intake Intake Visit Reasons: Anticoagulation Allergies Penicillins Allergy (Intermediate, Verified 06/22/24 15:33) RASH Medication List - Last Reconciled 06/22/24 by Samantha Potter RN levothyroxine 150 mcg PO DAILY metoprolol succinate ER 50 mg PO DAILY nifedipine ER 30 mg PO DAILY [occuvite PO] triamterene-hydrochlorothiazid 37.5-25 mg 1 cap PO DAILY warfarin 2.5 mg See Protocol PO DAILY Nursing Note INR 1.9?out of therapeutic range of 2-3 Medications and supplements reviewed Patient status: well Medications or supplements: pt states she started on a med for sleep but can't remember the name. She will call tomorrow with the name of the medicine. She started 1 week ago Diet: usual diet for pt Denies any signs and symptoms of bleeding or clotting or unusual bruising Bleeding, bruising, clotting discussed Nutritional guidance given: to avoid greens today. Pt to have a serving of foods from the list that raises the INR. She said she will have tomatoes from the garden and watermelon Dose: 2.5mg X 6 days and 5mg X 1 day F/U INR Date : 2 weeks?? Patient verbalizing understanding of instructions given. 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
[2024-06-22 15:49] LABS: Prothrombin Time Whole Bld POC 22.3 sec (11.1-13.5); ~PT, ~INR - Anti Coag Clinic 1.9 (0.9-1.1)
== END 2024-06-22 16:16 | disposition home or self-care (01) ==
LOC: HO.ACS 15:31
PROVIDERS: PCP Internal Medicine; Visit Provider Internal Medicine
DX: Z79.01 Long term (current) use of anticoagulants (principal)

== ENCOUNTER → 2024-06-22 15:31 | Outpatient (BNVA) | payer MEDICARE, SELFPAY | PROVIDERS: PCP Internal Medicine; Visit Provider Internal Medicine | DX: I48.20 Chronic atrial fibrillation, unspecified (principal); Z79.01 Long term (current) use of anticoagulants; Z51.81 Encounter for therapeutic drug level monitoring | CPT/HCPCS: 85610; 99211 ==

== ENCOUNTER 2024-07-05 15:27 | Outpatient (AMB) | payer MEDICARE, SELFPAY ==
--- NOTE | 2024-07-05 15:35 | MHC.OFFVISCO ---
Intake Intake Visit Reasons: Anticoagulation Allergies Penicillins Allergy (Intermediate, Verified 07/05/24 15:28) RASH Medication List - Last Reconciled 07/05/24 by Catie Romero RN levothyroxine 150 mcg PO DAILY metoprolol succinate ER 50 mg PO DAILY mirtazapine 3.75 mg PO BEDTIME nifedipine ER 30 mg PO DAILY [occuvite PO] triamterene-hydrochlorothiazid 37.5-25 mg 1 cap PO DAILY warfarin 2.5 mg See Protocol PO DAILY Nursing Note INR 1.8-? out of therapeutic range of 2-3 Medications and supplements reviewed Patient status: no c,o, denies missed dose Medications or supplements: no changes, started mirtazapine 3.75mg hs ( low dose) Diet: appetite good Denies any signs and symptoms of bleeding or clotting or unusual bruising Bleeding, bruising, clotting discussed Nutritional guidance given: no greens for 2 days, eat reds to raise Dose: 5mg today - increase weekly dosing to 5mg x 2, 2.5mg x 5 F/U INR Date : 1 week Patient verbalizing understanding of instructions given. Coding Level of Care Code Est Patient Level 1 Diagnoses Current use of anticoagulant therapy Z79.01 Assessment & Plan Assessment & Plan (1) Current use of anticoagulant therapy: Code(s): Z79.01 - assisted (current) use of anticoagulants Category: Medical
[2024-07-05 15:36] LABS: Prothrombin Time Whole Bld POC 21.6 sec (11.1-13.5); ~PT, ~INR - Anti Coag Clinic 1.8 (0.9-1.1)
== END 2024-07-05 15:49 | disposition home or self-care (01) ==
LOC: HO.ACS 15:27
PROVIDERS: PCP Internal Medicine; Visit Provider Internal Medicine
DX: Z79.01 Long term (current) use of anticoagulants (principal)

== ENCOUNTER → 2024-07-05 15:27 | Outpatient (BNVA) | payer MEDICARE, SELFPAY | PROVIDERS: PCP Internal Medicine; Visit Provider Internal Medicine | DX: I48.20 Chronic atrial fibrillation, unspecified (principal); Z79.01 Long term (current) use of anticoagulants; Z51.81 Encounter for therapeutic drug level monitoring | CPT/HCPCS: 85610; 99211 ==

== ENCOUNTER 2024-07-13 15:25 | Outpatient (AMB) | payer MEDICARE, SELFPAY ==
--- NOTE | 2024-07-13 15:51 | MHC.OFFVISCO ---
Intake Intake Visit Reasons: Anticoagulation Allergies Penicillins Allergy (Intermediate, Verified 07/13/24 15:35) RASH Medication List - Last Reconciled 07/13/24 by Idania Coronado RN levothyroxine 150 mcg PO DAILY metoprolol succinate ER 50 mg PO DAILY mirtazapine 3.75 mg PO BEDTIME nifedipine ER 30 mg PO DAILY [occuvite PO] triamterene-hydrochlorothiazid 37.5-25 mg 1 cap PO DAILY warfarin 2.5 mg See Protocol PO DAILY Nursing Note NO CP,SOB,DIET/MED CHANGES,FALLS OR SX OF BLEEDING. CONTINUE PRESENT DOSE AND FOLLOW-UP IN 3 WEEKS. GOOD UNDERSTANDING OF DOSING INSTR. Coding Level of Care Code Est Patient Level 1 Diagnoses Current use of anticoagulant therapy Z79.01 Results AMB INR Fingerstick AMB INR Fingerstick 2.6 Last Edit by Idania Coronado RN on 07/13/24 15:38 Assessment & Plan Assessment & Plan (1) Current use of anticoagulant therapy: Code(s): Z79.01 - senior care (current) use of anticoagulants Category: Medical
[2024-07-14 02:16] LABS: Prothrombin Time Whole Bld POC 31.3 sec (11.1-13.5); ~PT, ~INR - Anti Coag Clinic 2.6 (0.9-1.1)
== END 2024-07-13 15:52 | disposition home or self-care (01) ==
LOC: HO.ACS 15:25
PROVIDERS: PCP Internal Medicine; Visit Provider Internal Medicine
DX: Z79.01 Long term (current) use of anticoagulants (principal)

== ENCOUNTER → 2024-07-13 15:25 | Outpatient (BNVA) | payer MEDICARE, SELFPAY | PROVIDERS: PCP Internal Medicine; Visit Provider Internal Medicine | DX: I48.20 Chronic atrial fibrillation, unspecified (principal); Z79.01 Long term (current) use of anticoagulants; Z51.81 Encounter for therapeutic drug level monitoring | CPT/HCPCS: 85610; 99211 ==

== ENCOUNTER 2024-08-03 15:33 | Outpatient (AMB) | payer MEDICARE, SELFPAY ==
[2024-08-03 15:40] LABS: Prothrombin Time Whole Bld POC 31.4 sec (11.1-13.5); ~PT, ~INR - Anti Coag Clinic 2.6 (0.9-1.1)
--- NOTE | 2024-08-03 15:44 | MHC.OFFVISCO ---
Intake Intake Visit Reasons: Anticoagulation Allergies Penicillins Allergy (Intermediate, Verified 08/03/24 15:34) RASH Medication List - Last Reconciled 08/03/24 by Samantha Potter RN levothyroxine 150 mcg PO DAILY metoprolol succinate ER 50 mg PO DAILY mirtazapine 3.75 mg PO BEDTIME nifedipine ER 30 mg PO DAILY [occuvite PO] triamterene-hydrochlorothiazid 37.5-25 mg 1 cap PO DAILY warfarin 2.5 mg See Protocol PO DAILY Nursing Note INR: 2.6 in therapeutic range of 2-3 Medications and supplements reviewed No changes in health, diet, medications, or supplements, Denies any signs and symptoms of bleeding or bruising or clotting. Bleeding, bruising, clotting discussed Nutritional guidance given. Pt had a question about spaghetti sauce and homemade stewed tomatoes. Informed her these could raise the INR and she could have them but to balance it with a serving of greens the next day. 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
== END 2024-08-03 15:55 | disposition home or self-care (01) ==
LOC: HO.ACS 15:33
PROVIDERS: PCP Internal Medicine; Visit Provider Internal Medicine
DX: Z79.01 Long term (current) use of anticoagulants (principal)

== ENCOUNTER → 2024-08-03 15:33 | Outpatient (BNVA) | payer MEDICARE, SELFPAY | PROVIDERS: PCP Internal Medicine; Visit Provider Internal Medicine | DX: I48.20 Chronic atrial fibrillation, unspecified (principal); Z79.01 Long term (current) use of anticoagulants; Z51.81 Encounter for therapeutic drug level monitoring | CPT/HCPCS: 85610; 99211 ==

== ENCOUNTER 2024-08-31 15:26 | Outpatient (AMB) | payer MEDICARE, SELFPAY ==
[2024-08-31 15:31] LABS: Prothrombin Time Whole Bld POC 23.2 sec (11.1-13.5); ~PT, ~INR - Anti Coag Clinic 1.9 (0.9-1.1)
--- NOTE | 2024-08-31 15:38 | MHC.OFFVISCO ---
Intake Intake Visit Reasons: Anticoagulation Allergies Penicillins Allergy (Intermediate, Verified 08/31/24 15:26) RASH Medication List - Last Reconciled 08/31/24 by Alondra Hdz RN levothyroxine 150 mcg PO DAILY metoprolol succinate ER 50 mg PO DAILY mirtazapine 3.75 mg PO BEDTIME nifedipine ER 30 mg PO DAILY [occuvite PO] triamterene-hydrochlorothiazid 37.5-25 mg 1 cap PO DAILY warfarin 2.5 mg See Protocol PO DAILY Nursing Note INR: 1.9 ALMOST therapeutic range- ATE MORE GREENS RECENTLY Medications and supplements reviewed No changes in health, diet, medications, or supplements, Denies any signs and symptoms of bleeding or bruising or clotting. Bleeding, bruising, clotting discussed Nutritional guidance given - AVOID GREENS TODAY AND TOMORROW Dose: KEEP SAME DOSE 5MG X 2 DAY/ 2.5MG X 5 DAYS - EAT MORE ORANGE AND REDS LIKE SQUASH SWEET POTATOES BEETS F/U INR: 4 WEEKS Patient verbalizes understanding of instructions given Coding Level of Care Code Est Patient Level 1 Diagnoses Current use of anticoagulant therapy Z79.01 Results AMB INR Fingerstick AMB INR Fingerstick 1.9 Last Edit by Alondra Hdz RN on 08/31/24 15:33 MANUAL METER Assessment & Plan Assessment & Plan (1) Current use of anticoagulant therapy: Code(s): Z79.01 - FPC (current) use of anticoagulants Category: Medical
== END 2024-08-31 15:41 | disposition home or self-care (01) ==
LOC: HO.ACS 15:26
PROVIDERS: PCP Internal Medicine; Visit Provider Internal Medicine
DX: Z79.01 Long term (current) use of anticoagulants (principal)

== ENCOUNTER → 2024-08-31 15:26 | Outpatient (BNVA) | payer MEDICARE, SELFPAY | PROVIDERS: PCP Internal Medicine; Visit Provider Internal Medicine | DX: I48.20 Chronic atrial fibrillation, unspecified (principal); Z79.01 Long term (current) use of anticoagulants; Z51.81 Encounter for therapeutic drug level monitoring | CPT/HCPCS: 85610; 99211 ==

== ENCOUNTER 2024-09-28 15:27 | Outpatient (AMB) | payer MEDICARE, SELFPAY ==
--- NOTE | 2024-09-28 15:47 | MHC.OFFVISCO ---
Intake Intake Visit Reasons: Anticoagulation Allergies Penicillins Allergy (Intermediate, Verified 09/28/24 15:31) RASH Medication List - Last Reconciled 09/28/24 by Alondra Hdz RN levothyroxine 150 mcg PO DAILY metoprolol succinate ER 50 mg PO DAILY mirtazapine 3.75 mg PO BEDTIME nifedipine ER 30 mg PO DAILY [occuvite PO] triamterene-hydrochlorothiazid 37.5-25 mg 1 cap PO DAILY warfarin 2.5 mg See Protocol PO DAILY Nursing Note INR: 3.0 in therapeutic range Medications and supplements reviewed No changes in health, diet, medications, or supplements, Denies any signs and symptoms of bleeding or bruising or clotting. Bleeding, bruising, clotting discussed Nutritional guidance given Dose: KEEP DOSE THE SAME 5MG X 2 DAYS/ 2.5MG X 5 DAYS F/U INR: 1 MONTH Patient verbalizes understanding of instructions given Questionnaires HAS-BLED Does the patient had uncontrolled Hypertension?: No Does the patient have renal disease?: No Does the patient have liver disease?: No Does the patient have a history of stroke?: No Has the patient had major bleeding or predisposition to bleeding?: Yes (HX OF RECTAL BLEED >50 YEARS MARLA) Does the patient have labile INRs?: No Is the patient over 65 years of age?: Yes Is the patient on medications that gives them a predisposition to bleeding?: Yes Does the patient use alcohol?: No HAS-BLED Score: 3 CHADSVASC Age: 75 or over Gender: Female Does the patient have a history of CHF?: No Does the patient have a history of Hypertension?: Yes Does the patient have a history of Stroke/TIA/Thromboembolism?: No Does the patient have a history of Vascular Disease (prior OK, PAD or aortic plaque)?: No Does the patient have a history of Diabetes?: No CHADS VACS Score: 4 Carlota Prediction Score Rsk VTE Active Cancer: No Previous VTE, excluding superficial vein thrombosis: No Reduced mobility: No Already known Thrombophilic Condition: No With-in last month Trauma and/or Surgery: No Elderly 70 year or older: Yes Heart and/or Respiratory Failure: No Acute Myocardial infarction and/or Ischemic Stroke: No Acute Infection and/or Rheumatologic Disorder: No Obesity (BMI 30 or greater): No Ongoing Hormonal Treatment: No Score: 1 Carlota Score less than 4; Low Risk of VTE Carlota Score 4 or greater; High Risk of VTE Coding Level of Care Code Est Patient Level 1 Diagnoses Current use of anticoagulant therapy Z79.01 Results AMB INR Fingerstick AMB INR Fingerstick 3.0 Last Edit by Alondra Hdz RN on 09/28/24 15:40 MANUAL ENTRY Assessment & Plan Assessment & Plan (1) Current use of anticoagulant therapy: Code(s): 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
[2024-09-28 16:26] LABS: Prothrombin Time Whole Bld POC 35.7 sec (11.1-13.5)
--- OUTSIDE RECORDS SUMMARY | 2024-10-04 04:18 | XMS_ITS | Continuity of Care Document ---
Author Organization [facility] [address] [place] [address] Phone [phone] Problems Active Problems Provider Date Hypothyroidism Warren Tobias M.D. Onset: 1 Essential hypertension Warren Tobias M.D. O nset: 08/11/2022 Multinodular goiter Warren Tobias M.D. Onse t: 08/11/2022 Atrial fibrillation Warren Tobias M.D. Onse t: 05/18/2023 Social History Type Date Description Comments Sex Unknown Lives With Spouse Lives With Son ETOH Use Occasionally consumes alcoho l one daily Tobacco Use Start: Unknown Patient has never smoked Smoking Status Reviewed: 03/16/23 Patient has never sm oked Allergies and adverse reactions Active Allergies Criticality Reaction Severity Comments Date Penicillin Unable to assess criticality 08/11/2022 Medications Active Medications SIG Qnty Indications Order ing Provider Date Mirtazapine7.5mg Tablets 1/2 tab by mouth at bedtime 60tabs Warren Tobias M.D. 06/13/2024 Nifedipine ER30mg Tablets ER 24HR Take 1 Tablet By Mouth Every Day 90tabs Warren Tobias M.D. 08/11/2022 Metoprolol Succinate ER50mg Tablets ER 24HR Take 1 Tablet By Mouth Every Day 90tabs Warren Tobias M.D. Triamterene/Hydrochlor [id number] Capsules Take 1 Capsule By Mouth Every Day 90caps Warren Tobias M.D. Levothyroxine [id number] Tablets Take 1 Tablet By Mouth Every Day as Directed 90tabs Ruchi MontgomeryD. Warfarin Sodium2.5mg Tablets Take 1 To 2 Tablets By Mouth Every Day as Directed 180gonsalo Tobias M.D. Vital Signs Date Vital Result Comment 09/15/2024 3:19pm BP Systolic 122 mmHg BP Diastolic 70 mmHg Heart Rate 72 /min Height 62 inches 5'2 Weight 142.25 lb BMI (Body Mass Index) 26.0 kg/m2 Results Test Acquired Date Facility Test Result H/L Range Note Culture Urine 08/27/2023 [facility] Specimen Description URINE Special Requests NONE Culture >100,000 COL/ML <SEE NOTE> Abnormal 1 Report Status FINAL 08/30/2023 2 Comprehensive Metabolic Panl 08/27/2023 [facility] Glucose 108 mg/dL High (70-99) BUN 22 mg/dL (8-23) Creatinine 1.1 mg/dL High (0.5-1. 0) Sodium 141 mmol/L (133-14 5) Potassium 3.0 mmol/L Low (3.6-5. 2) Chloride 101 mmol/L (98-107 ) Bicarbonate 29 mmol/L (22-29) Anion Gap 11 (4-17) Albumin 4.4 GM/DL (3.4-4. 8) Calcium 9.7 mg/dL (8.6-10 .5) Bilirubin,Total 0.7 mg/dL (0-1.2 ) Total Protein 7.4 GM/DL (6.2-8. 2) Ag Ratio 1.5 Ast 20 U/L (0-32) Alk Phos 91 U/L (35-104 ) Alt 15 U/L (0-33) Estimated GFR Creatinine 46 ML/MIN/1.7 3M2 3 Lipid Panel 08/27/2023 [facility] Cholesterol, Total 213 mg/dL High (<200) Triglyceride 99 mg/dL (<150) HDL Chol 64 mg/dL (>39) LDL Cholesterol, Calculated 129 mg/dL (0-130) Non HDL Cholesterol (Calc) 149 mg/dL (<160) Complete Abc With Diff 08/27/2023 [facility] WBC 9.3 K/MM3 (4.0-11 .0) RBC 5.17 M/MM3 (4.20-5 .40) HGB 14.4 GM/DL (11.7-1 5.5) HCT 44.7 % (35.7-4 5.8) MCV 86.5 FL (80.0-1 00.0) MCH 27.9 pg (27.0-3 4.0) MCHC 32.2 g/dL Low (33.0-3 7.0) PLT 340 K/MM3 (150-46 0) RDW-SD 56.1 FL High (<47.0) MPV 9.9 FL (9.4-12 .4) Automated NRBC 0.0 #/100WBC'S Abs. NRBC 0.0 K/MM3 Neut # 5.9 K/MM3 (1.3-7. 0) Lymph # 2.2 K/MM3 (0.8-3. 1) [place]# 1.0 K/MM3 High (0.4-0. 9) Eo # 0.0 K/MM3 (0.0-0. 4) Baso # 0.1 K/MM3 (0.0-0. 1) Abs. Imm Gran 0.1 K/MM3 Neut 63.5 % (44-76) Lymph 23.9 % (15-43) Monocyte 10.8 % High (4.5-10 .5) Eo 0.4 % (0-6) Baso 0.5 % (0-2) Imm Gran 0.9 % Laboratory test finding 08/27/2023 [facility] TSH With Reflex To FT4 2.87 uIU/mL (0.4-4. 2) Complete Abc With Diff 08/04/2022 [facility] WBC 6.5 K/MM3 (4.0-11 .0) RBC 5.04 M/MM3 (4.20-5 .40) HGB 14.1 GM/DL (11.7-1 5.5) HCT 42.1 % (35.7-4 5.8) MCV 83.5 FL (80.0-1 00.0) MCH 28.0 pg (27.0-3 4.0) MCHC 33.5 g/dL (33.0-3 7.0) PLT 252 K/MM3 (150-46 0) RDW-SD 50.0 FL High (<47.0) MPV 9.8 FL (9.4-12 .4) Automated NRBC 0.0 #/100WBC'S Abs. NRBC 0.0 K/MM3 Neut # 3.9 K/MM3 (1.3-7. 0) Lymph # 1.8 K/MM3 (0.8-3. 1) [place]# 0.6 K/MM3 (0.4-0. 9) Eo # 0.1 K/MM3 (0.0-0. 4) Baso # 0.1 K/MM3 (0.0-0. 1) Abs. Imm Gran 0.0 K/MM3 Neut 59.7 % (44-76) Lymph 27.8 % (15-43) Monocyte 9.3 % (4.5-10 .5) Eo 1.5 % (0-6) Baso 1.1 % (0-2) Imm Gran 0.6 % Urinalysis Complete 08/04/2022 [facility] Appear/Color YELLOW 4 SP. [place] 1.015 (1.002- 1.030) Urine PH 6.5 (5.0-8. 0) Urine Albumin 1+ Abnormal (Neg) Urine Glucose NEGATIVE (Neg) Urine Ketones NEGATIVE (Neg) Urine Bilirubin NEGATIVE (Neg) Urine Hemoglobin TRACE Abnormal (Neg) Urine Nitrite POSITIVE Abnormal (Neg) Urine Leukocyte 3+ Abnormal (Neg) Urobilinogen NORMAL mg/dL (Norm) Urine WBCs >182 /HPF High (0-5) Urine RBCs 11 /HPF High (0-3) Bacteria HEAVY HPF Abnormal (Neg) Squamous Epith 62 /HPF High (0-8) Comprehensive Metabolic Panl 08/04/2022 [facility] Glucose 105 mg/dL High (70-99) BUN 14 mg/dL (8-23) Creatinine 1.0 mg/dL (0.5-1. 0) Sodium 142 mmol/L (133-14 5) Potassium 3.8 mmol/L (3.6-5. 2) Chloride 105 mmol/L (98-107 ) Bicarbonate 28 mmol/L (22-29) Anion Gap 9 (4-17) Albumin 4.0 GM/DL (3.4-4. 8) Calcium 9.6 mg/dL (8.6-10 .5) Bilirubin,Total 0.9 mg/dL (0-1.2 ) Total Protein 6.7 GM/DL (6.2-8. 2) Ag Ratio 1.5 Ast 19 U/L (0-32) Alk Phos 76 U/L (35-104 ) Alt 16 U/L (0-33) Estimated GFR Creatinine 53 ML/MIN/1.7 3M2 5 Lipid Panel 08/04/2022 [facility] Cholesterol, Total 161 mg/dL (<200) Triglyceride 87 mg/dL (<150) HDL Chol 51 mg/dL (>39) LDL Cholesterol, Calculated 93 mg/dL (0-130) Non HDL Cholesterol (Calc) 110 mg/dL (<160) Laboratory test finding 08/04/2022 [facility] TSH 4.31 uIU/mL High (0.4-4. 2) 1 >100,000 COL/ML ESCH ERICHIA COLI This isolate was identified using Maldi-TOF system These AST results were performed on the [employer] 2 ID and AST system 2 FINAL 08/30/2023 ORGANISM >100,000 COL/ML ESCHERICHIA COLI This isolate was identified using Maldi-TOF system These AST results were performed on the [employer] 2 ID and AST system METHOD MIN. INHIB. CONC. (MCG/ML) AMPICILLIN SUSCEPTIBLE AMPICILLIN/SULBACTAM SUSCEPTIBLE CEFAZOLIN SUSCEPTIBLE CEFEPIME SUSCEPTIBLE CEFTRIAXONE SUSCEPTIBLE CIPROFLOXACIN RESISTANT ERTAPENEM SUSCEPTIBLE GENTAMICIN SUSCEPTIBLE LEVOFLOXACIN RESISTANT NITROFURANTOIN SUSCEPTIBLE PIPERACILLIN/TAZOBAC SUSCEPTIBLE TRIMETH/SULFAMETHOX RESISTANT 3 Creatinine based est imated glomerular filtration (eGFR) in adults is calculated using the National [employer] recommended 202 CKD-EPI equation. Estimates GFR from serum creatinine, age and sex. 4 TURBID 5 Creatinine based est imated glomerular filtration (eGFR) in adults is calculated using the National [employer] recommended 2021 CKD-EPI equation. Estimates GFR from serum creatinine, age and sex. Medical Devices Description No Information Available Encounters Type Date Location Provider Dx Diagnosis Office Visit 06/28/2024 2:45p Main Office Warren Tobias M.D. I10 Essential (primary) hypertension I48.91 Unspecified atrial f ibrillation Assessments Date Code Description Provider 09/15/2024 E04.2 Multinodular goiter Warren Chisholm M.D. 09/15/2024 F32.A Mild depression Warren gongora M.D. 09/15/2024 I48.91 Unspecified atrial fibrillat ion Warren Tobias M.D. Plan of Treatment Future Appointment(s):* 01/23/2025 4:00 pm - Warren Tobias M.D. at Main Office 09/15/2024 - Warren Tobias M.D.* E04.2 Multinodular goiter * F32.A Mild depression * I48.91 Unspecified atrial fibrillation Functional Status Description No Information Available Mental Status Description No Information Available Referrals Refer to Dr Reason for Referral Status Appt Nguyễn e [facility] Cardiology (New Patients) AFIB Closed 12/06/[address] [place], [place] [id number] [phone] Gladis Davis MD BILAT HAND WITH QUESTION OF CARPAL TUNNEL SYNDROME Closed 07/09/2023 [address] [place], [place] [id number] [phone]
== END 2024-09-28 15:53 | disposition home or self-care (01) ==
LOC: HO.ACS 15:27
PROVIDERS: PCP Internal Medicine; Visit Provider Internal Medicine
DX: Z79.01 Long term (current) use of anticoagulants (principal)

== ENCOUNTER → 2024-09-28 15:27 | Outpatient (BNVA) | payer MEDICARE, SELFPAY | PROVIDERS: PCP Internal Medicine; Visit Provider Internal Medicine | DX: I48.20 Chronic atrial fibrillation, unspecified (principal); Z79.01 Long term (current) use of anticoagulants; Z51.81 Encounter for therapeutic drug level monitoring | CPT/HCPCS: 85610; 99211 ==

== ENCOUNTER 2024-10-26 15:21 | Outpatient (AMB) | payer MEDICARE, SELFPAY ==
[2024-10-26 15:30] LABS: Prothrombin Time Whole Bld POC 23.7 sec (11.1-13.5)
--- NOTE | 2024-10-26 15:43 | MHC.OFFVISCO ---
Intake Intake Visit Reasons: Anticoagulation Allergies Penicillins Allergy (Intermediate, Verified 10/26/24 15:25) RASH Medication List - Last Reconciled 10/26/24 by Samantha Potter, RN levothyroxine 150 mcg PO DAILY metoprolol succinate ER 50 mg PO DAILY mirtazapine 3.75 mg PO BEDTIME nifedipine ER 30 mg PO DAILY [occuvite PO] triamterene-hydrochlorothiazid 37.5-25 mg 1 cap PO DAILY warfarin 2.5 mg See Protocol PO DAILY Nursing Note INR: 2.0 in therapeutic range of 2-3 Medications and supplements reviewed No changes in health, diet, medications, or supplements, Denies any signs and symptoms of bleeding or bruising or clotting. Bleeding, bruising, clotting discussed Nutritional guidance given to avoid greens today and tomorrow Food list reviewed. pt to focus on foods that raise the INR today and tomorrow. 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
--- OUTSIDE RECORDS SUMMARY | 2024-10-26 16:48 | XMS_ITS ---
Continuity of Care Document (CCD) Created on: October 26, 2024 Dionne Hernandez External Reference #: [id number] : [id number] Sex: Female Author Organization [facility] [address] [place] [address] Phone [phone] Problems Active Problems Provider Date Hypothyroidism Warren [...] Every Day 90tabs Warren Tobias M.D. Triamterene/Hydrochlor yrcvuwzzg22.5-25mg Capsules Take 1 Capsule By Mouth Every Day 90caps Warren Tobias M.D. Levothyroxine [id number] Tablets Take 1 Tablet By Mouth Every [...] Result H/L Range Note Culture Urine 08/27/2023 [facility] Specimen Description URINE Special Requests NONE Culture >100,000 COL/ML <SEE NOTE> Abnormal 1 Report Status FINAL 08/30/2023 2 Comprehensive Metabolic Panl 08/27/2023 [facility] Glucose 108 mg/dL High (70-99) [...] 46 ML/MIN/1.7 3M2 3 Lipid Panel 08/27/2023 [facility] Cholesterol, Total 213 mg/dL High (<200) Triglyceride 99 mg/dL (<150) HDL Chol 64 mg/dL (>39) LDL Cholesterol, Calculated 129 mg/dL (0-130) Non HDL Cholesterol (Calc) 149 mg/dL (<160) Complete Abc With Diff 08/27/2023 [facility] WBC 9.3 K/MM3 (4.0-11 .0) [...] 0) Lymph # 2.2 K/MM3 (0.8-3. 1) [place]# 1.0 K/MM3 High (0.4-0. 9) Eo # 0.0 K/MM3 (0.0-0. 4) Baso # 0.1 K/MM3 (0.0-0. 1) Abs. Imm Gran 0.1 K/MM3 Neut 63.5 % (44-76) Lymph 23.9 % (15-43) Monocyte 10.8 % High (4.5-10 .5) Eo 0.4 % (0-6) Baso 0.5 % (0-2) Imm Gran 0.9 % Laboratory test finding 08/27/2023 [facility] TSH With Reflex To FT4 2.87 uIU/mL (0.4-4. 2) Complete Abc With Diff 08/04/2022 [facility] WBC 6.5 K/MM3 (4.0-11 .0) [...] 0) Lymph # 1.8 K/MM3 (0.8-3. 1) [place]# 0.6 K/MM3 (0.4-0. 9) Eo # 0.1 K/MM3 (0.0-0. 4) Baso # 0.1 K/MM3 (0.0-0. 1) Abs. Imm Gran 0.0 K/MM3 Neut 59.7 % (44-76) Lymph 27.8 % (15-43) Monocyte 9.3 % (4.5-10 .5) Eo 1.5 % (0-6) Baso 1.1 % (0-2) Imm Gran 0.6 % Urinalysis Complete 08/04/2022 [facility] Appear/Color YELLOW 4 SP. [place] 1.015 (1.002- 1.030) Urine PH 6.5 (5.0-8. [...] /HPF High (0-8) Comprehensive Metabolic Panl 08/04/2022 [facility] Glucose 105 mg/dL High (70-99) [...] 53 ML/MIN/1.7 3M2 5 Lipid Panel 08/04/2022 [facility] Cholesterol, Total 161 mg/dL (<200) Triglyceride 87 mg/dL (<150) HDL Chol 51 mg/dL (>39) LDL Cholesterol, Calculated 93 mg/dL (0-130) Non HDL Cholesterol (Calc) 110 mg/dL (<160) Laboratory test finding 08/04/2022 [facility] TSH 4.31 uIU/mL High (0.4-4. 2) 1 >100,000 COL/ML ESCH ERICHIA COLI This isolate was identified using Maldi-TOF system These AST results were performed on the [facility] 2 ID and AST system 2 FINAL 08/30/2023 ORGANISM >100,000 COL/ML ESCHERICHIA COLI This isolate was identified using Maldi-TOF system These AST results were performed on the [facility] [facility] 2 ID and AST system METHOD MIN. [...] Reason for Referral Status Appt Nguyễn e [facility] Cardiology (New Patients) AFIB Closed 12/06/[address] [place], [place] [id number] [phone] Gladis Davis MD BILAT HAND WITH QUESTION OF CARPAL TUNNEL SYNDROME Closed 07/09/2023 [address] [place], [place] [id number] [phone]
== END 2024-10-26 15:55 | disposition home or self-care (01) ==
LOC: HO.ACS 15:21
PROVIDERS: PCP Internal Medicine; Visit Provider Internal Medicine
DX: Z79.01 Long term (current) use of anticoagulants (principal)

== ENCOUNTER → 2024-10-26 15:21 | Outpatient (BNVA) | payer MEDICARE, SELFPAY | PROVIDERS: PCP Internal Medicine; Visit Provider Internal Medicine | DX: I48.20 Chronic atrial fibrillation, unspecified (principal); Z79.01 Long term (current) use of anticoagulants; Z51.81 Encounter for therapeutic drug level monitoring | CPT/HCPCS: 85610; 99211 ==

== ENCOUNTER 2024-11-23 15:04 | Outpatient (AMB) | payer MEDICARE, SELFPAY ==
[2024-11-23 15:15] LABS: Prothrombin Time Whole Bld POC 36.6 sec (11.1-13.5)
--- NOTE | 2024-11-23 15:21 | MHC.OFFVISCO ---
Intake Intake Visit Reasons: Anticoagulation Allergies Penicillins Allergy (Intermediate, Verified 11/23/24 15:04) RASH Medication List - Last Reconciled 11/23/24 by Samantha Potter, YONATHAN levothyroxine 150 mcg PO DAILY metoprolol succinate ER 50 mg PO DAILY mirtazapine 3.75 mg PO BEDTIME nifedipine ER 30 mg PO DAILY [occuvite PO] triamterene-hydrochlorothiazid 37.5-25 mg 1 cap PO DAILY warfarin 2.5 mg See Protocol PO DAILY Nursing Note INR: 3.0 in therapeutic range of 2-3 Medications and supplements reviewed No changes in health, diet, medications, or supplements, Denies any signs and symptoms of bleeding or bruising or clotting. 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
== END 2024-11-23 15:23 | disposition home or self-care (01) ==
LOC: HO.ACS 15:04
PROVIDERS: PCP Internal Medicine; Visit Provider Internal Medicine
DX: Z79.01 Long term (current) use of anticoagulants (principal)

== ENCOUNTER 2024-12-22 15:32 | Outpatient (AMB) | payer MEDICARE, SELFPAY ==
[2024-12-22 15:44] LABS: Prothrombin Time Whole Bld POC 33.2 sec (11.1-13.5); ~PT, ~INR - Anti Coag Clinic 2.8 (0.9-1.1)
--- NOTE | 2024-12-22 16:04 | MHC.OFFVISCO ---
Intake Intake Visit Reasons: Anticoagulation Allergies Penicillins Allergy (Intermediate, Verified 12/22/24 15:34) RASH Nursing Note Pt to ACS and states she was in the emergency room yesterday c/o swollen right leg. States she had an US of leg and was told there is no clot. Examined both lower legs and right leg is edematous 1-2+, red and hot compared to left leg. INR: 2.8 in therapeutic range of 2-3 Medications and supplements reviewed No changes in health, diet, medications, or supplements, Denies any signs and symptoms of bleeding or bruising or clotting. Bleeding, bruising, clotting discussed Nutritional guidance given Dose: 2.5mg X 5 days and 5mg X 2 days (Wed & Wed) F/U INR: 4 weeks Patient verbalizes understanding of instructions given T/C to pt's Dr Griffin's office. Message given about pt's right leg as noted above. Also that pt was in the ER yesterday at [facility] and had an ultrasound which showed no clot. 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
--- OUTSIDE RECORDS SUMMARY | 2024-12-22 17:37 | XMS_ITS | Continuity of Care Document ---
Author Organization [facility] [address] [place] [address] Phone [phone] Problems Active Problems Provider Date Hypothyroidism Warren [...] Every Day 90tabs Warren Tobias M.D. Triamterene/Hydrochlor jeamicani50.5-25mg Capsules Take 1 Capsule By Mouth Every Day 90caps Warren Tobias M.D. Levothyroxine [id number] Tablets Take 1 Tablet By Mouth Every [...] Result H/L Range Note Culture Urine 08/27/2023 [facility] Specimen Description URINE Special Requests NONE Culture >100,000 COL/ML <SEE NOTE> Abnormal 1 Report Status FINAL 08/30/2023 2 Comprehensive Metabolic Panl 08/27/2023 [facility] Glucose 108 mg/dL [...] 46 ML/MIN/1.7 3M2 3 Lipid Panel 08/27/2023 [facility] Cholesterol, Total 213 mg/dL High (<200) Triglyceride 99 mg/dL (<150) HDL Chol 64 mg/dL (>39) LDL Cholesterol, Calculated 129 mg/dL (0-130) Non HDL Cholesterol (Calc) 149 mg/dL (<160) Complete Abc With Diff 08/27/2023 [facility] WBC 9.3 K/MM3 [...] 0) Lymph # 2.2 K/MM3 (0.8-3. 1) [place]# 1.0 K/MM3 High (0.4-0. 9) Eo # 0.0 K/MM3 (0.0-0. 4) Baso # 0.1 K/MM3 (0.0-0. 1) Abs. Imm Gran 0.1 K/MM3 Neut 63.5 % (44-76) Lymph 23.9 % (15-43) Monocyte 10.8 % High (4.5-10 .5) Eo 0.4 % (0-6) Baso 0.5 % (0-2) Imm Gran 0.9 % Laboratory test finding 08/27/2023 [facility] TSH With Reflex To FT4 2.87 uIU/mL (0.4-4. 2) Complete Abc With Diff 08/04/2022 [facility] WBC 6.5 K/MM3 [...] 0) Lymph # 1.8 K/MM3 (0.8-3. 1) [place]# 0.6 K/MM3 (0.4-0. 9) Eo # 0.1 K/MM3 (0.0-0. 4) Baso # 0.1 K/MM3 (0.0-0. 1) Abs. Imm Gran 0.0 K/MM3 Neut 59.7 % (44-76) Lymph 27.8 % (15-43) Monocyte 9.3 % (4.5-10 .5) Eo 1.5 % (0-6) Baso 1.1 % (0-2) Imm Gran 0.6 % Urinalysis Complete 08/04/2022 [facility] Appear/Color YELLOW 4 SP. [place] 1.015 (1.002- 1.030) Urine PH 6.5 (5.0-8. [...] /HPF High (0-8) Comprehensive Metabolic Panl 08/04/2022 [facility] Glucose 105 mg/dL [...] 53 ML/MIN/1.7 3M2 5 Lipid Panel 08/04/2022 [facility] Cholesterol, Total 161 mg/dL (<200) Triglyceride 87 mg/dL (<150) HDL Chol 51 mg/dL (>39) LDL Cholesterol, Calculated 93 mg/dL (0-130) Non HDL Cholesterol (Calc) 110 mg/dL (<160) Laboratory test finding 08/04/2022 [facility] TSH 4.31 uIU/mL High (0.4-4. 2) 1 >100,000 COL/ML ESCH ERICHIA COLI This isolate was identified using Maldi-TOF system These AST results were performed on the [employer] 2 ID and AST system 2 FINAL 08/30/2023 ORGANISM >100,000 COL/ML ESCHERICHIA COLI This isolate was identified using Maldi-TOF system These AST results were performed on the [employer] 2 ID and AST system METHOD MIN. [...] Reason for Referral Status Appt Nguyễn e [facility] Cardiology (New Patients) AFIB Closed 12/06/[address] [place], [place] [id number] [phone] Gladis Davis MD BILAT HAND WITH QUESTION OF CARPAL TUNNEL SYNDROME Closed 07/09/2023 [address] [place], [place] [id number] [phone]
--- OUTSIDE RECORDS SUMMARY | 2024-12-22 17:37 | XMS_ITS ---
Author Organization [facility] [place] Address Unknown Allergies, Adverse Reactions, Alerts Substance Reaction Status Noted Date Resolved Date PCN active Problems Problem Status Start Date End Date OTHER FRACTURE OF HEAD AND N SHEILA OF RIGHT FEMUR, SUBSEQUENT ENCOUNTER FOR CLOSED FRACTURE WITH ROUTINE HEALING (Primary) (S72.091D - ICD-10-CM) ACTIVE 08/08/2021 DISPLACED FRACTURE OF BASE O F NECK OF RIGHT FEMUR, SUBSEQUENT ENCOUNTER FOR CLOSED FRACTURE WITH ROUTINE HEALING (S72.041D - ICD-10-CM) RESOLVED 08/08/2021 CHRONIC KIDNEY DISEASE, STAG E 3 UNSPECIFIED (N18.30 - ICD-10-CM) ACTIVE 08/08/2021 ESSENTIAL (PRIMARY) HYPERTENSION (I10 - ICD-10-CM) ACT JEY 08/08/2021 AGE-RELATED OSTEOPOROSIS WIT HOUT CURRENT PATHOLOGICAL FRACTURE (M81.0 - ICD-10-CM) ACTIVE 08/08/2021 HYPOTHYROIDISM, UNSPECIFIED (E03.9 - ICD-10-CM) ACTIVE 08/08/2021 UNSPECIFIED MACULAR DEGENERATION (H35.30 - ICD-10-CM) ACTIVE 08/08/2021 PAROXYSMAL ATRIAL FIBRILLATION (I48.0 - ICD-10-CM) ACT JEY 08/08/2021 Encounters Encounter Performer Performer Role Encounter Diagnoses Location Date Discharge - Discharged to home or self care - Home(5) - [facility] on 05/12/2013 12:00 pm EDT - 05/19/2013 01:00 pm EDT Discharge - Discharged to home or self care - *Home Care Agency To Be Determined - Private home/apt. with home health services [facility] on 08/08/2021 06:30 pm EDT - 09/04/2021 02:21 pm EST Immunizations Vaccine Date Influenza Pneumovax Dose 1 TB 1 Step Mantoux (PPD) 05/13/2013 12:00 am EDT TB 2 Step Mantoux Skin Test 08/23/2021 0 1:00 pm EDT COVID-19 Vaccine Dose 1 01/08/2021 12:00 am EDT COVID-19 Vaccine Dose 2 01/29/2021 12:00 am EDT COVID-19 Vaccine Additional Dose/Booster Social History
== END 2024-12-22 15:54 | disposition home or self-care (01) ==
LOC: HO.ACS 15:32
PROVIDERS: PCP Internal Medicine; Visit Provider Internal Medicine
DX: Z79.01 Long term (current) use of anticoagulants (principal)

== ENCOUNTER → 2024-12-22 15:32 | Outpatient (BNVA) | payer MEDICARE, SELFPAY | PROVIDERS: PCP Internal Medicine; Visit Provider Internal Medicine | DX: I48.20 Chronic atrial fibrillation, unspecified (principal); Z79.01 Long term (current) use of anticoagulants; Z51.81 Encounter for therapeutic drug level monitoring | CPT/HCPCS: 85610; 99211 ==

== ENCOUNTER 2025-01-18 15:18 | Outpatient (AMB) | payer MEDICARE, SELFPAY ==
--- NOTE | 2025-01-18 15:42 | MHC.OFFVISCO ---
Intake Intake Visit Reasons: Anticoagulation Allergies Penicillins Allergy (Intermediate, Verified 01/18/25 15:22) RASH Medication List - Last Reconciled 01/18/25 by Samantha Potter, YONATHAN levothyroxine 150 mcg PO DAILY metoprolol succinate ER 50 mg PO DAILY mirtazapine 3.75 mg PO BEDTIME nifedipine ER 30 mg PO DAILY [occuvite PO] triamterene-hydrochlorothiazid 37.5-25 mg 1 cap PO DAILY warfarin 2.5 mg See Protocol PO DAILY Nursing Note INR: 3.0 in therapeutic range 2-3 Medications and supplements reviewed No changes in health, diet, medications, or supplements, Denies any signs and symptoms of bleeding or bruising or clotting. Bleeding, bruising, clotting discussed Nutritional guidance given to have a serving of greens today Dose: 2.5mg X 5 days and 5mg X 2 days (Wed and Sat) F/U INR: 4 weeks Patient verbalizes understanding of instructions given Coding Level of Care Code Est Patient Level 1 Diagnoses Current use of anticoagulant therapy Z79.01 Assessment & Plan Assessment & Plan (1) Current use of anticoagulant therapy: Code(s): Z79.01 - supervisor intermediates (current) use of anticoagulants Category: Medical
== END 2025-01-18 15:50 | disposition home or self-care (01) ==
LOC: HO.ACS 15:18
PROVIDERS: PCP Internal Medicine; Visit Provider Internal Medicine Medical Oncology
DX: Z79.01 Long term (current) use of anticoagulants (principal)

== ENCOUNTER → 2025-01-18 15:18 | Outpatient (BNVA) | payer MEDICARE, SELFPAY | PROVIDERS: PCP Internal Medicine; Visit Provider Internal Medicine Medical Oncology | DX: I48.20 Chronic atrial fibrillation, unspecified (principal); Z51.81 Encounter for therapeutic drug level monitoring; Z79.01 Long term (current) use of anticoagulants | CPT/HCPCS: 85610; 99211 ==

== ENCOUNTER 2025-02-15 15:21 | Outpatient (AMB) | payer MEDICARE, SELFPAY ==
--- NOTE | 2025-02-15 15:37 | MHC.OFFVISCO ---
Intake Intake Visit Reasons: Anticoagulation Allergies Penicillins Allergy (Intermediate, Verified 02/15/25 15:22) RASH Medication List - Last Reconciled 02/15/25 by Idania Coronado RN levothyroxine 150 mcg PO DAILY metoprolol succinate ER 50 mg PO DAILY mirtazapine 3.75 mg PO BEDTIME nifedipine ER 30 mg PO DAILY [occuvite PO] triamterene-hydrochlorothiazid 37.5-25 mg 1 cap PO DAILY warfarin 2.5 mg See Protocol PO DAILY Nursing Note NO CP,SOB OR SX OF BLEEDING. PT.STATES THAT HER APPETITE IS ONLY FAIR, AND SHE OCCAIS.HAS A SHOT OF FLORENCE IF UNABLE TO SLEEP. WILL HOLD WARFARIN TODAY AND FOLLOW-UP HERE IN 1 WEEK. WILL HAVE GREENS TODAY AND 2-3X WEEKLY. GOOD UNDERSTANDING OF DOSING INSTR. Coding Level of Care Code Est Patient Level 1 Diagnoses Current use of anticoagulant therapy Z79.01 Results AMB INR Fingerstick AMB INR Fingerstick 3.8 Last Edit by Idania Coronado RN on 02/15/25 15:31 Assessment & Plan Assessment & Plan (1) Current use of anticoagulant therapy: Code(s): Z79.01 - residential (current) use of anticoagulants Category: Medical
[2025-02-15 15:40] LABS: Prothrombin Time Whole Bld POC 45.4 sec (11.1-13.5); ~PT, ~INR - Anti Coag Clinic 3.8 (0.9-1.1)
--- OUTSIDE RECORDS SUMMARY | 2025-02-15 18:03 | XMS_ITS | Continuity of Care Document ---
Author Organization [facility] [address] [place] [address] Phone [phone] Problems Active Problems Provider Date Hypothyroidism Warren Tobias M.D. Onset: 1 Essential hypertension Warren Tobias M.D. O nset: 08/11/2022 Multinodular goiter Warren Toibas M.D. Onse t: 08/11/2022 Atrial fibrillation Warren Tobias M.D. Onse t: 05/18/2023 Social History Type Date Description Comments Sex Unknown Lives With Son ETOH Use Occasionally consumes alcoho l one daily Tobacco Use Start: Unknown Patient has never smoked Smoking Status Reviewed: 01/23/25 Patient has never sm oked Allergies and [...] Every Day 90tabs Warren Tobias M.D. Triamterene/Hydrochlor .5-25mg Capsules Take 1 Capsule By Mouth Every Day 90caps Warren Tobias M.D. Levothyroxine [id number] Tablets Take 1 Tablet By Mouth Every Day as Directed 90tabs Warren Tobias M.D. Warfarin Sodium2.5mg Tablets Take 1 To 2 Tablets By Mouth Every Day as Directed 180tabs Warren Tobias M.D. Vital Signs Date Vital Result Comment 01/23/2025 4:26pm BP Systolic 112 mmHg BP Diastolic 70 mmHg Heart Rate 68 /min Height 62 inches 5'2 Weight 143.25 lb BMI (Body Mass Index) 26.2 kg/m2 Results Test Acquired Date Facility Test Result H/L Range Note Comp. Metabolic Panel (14) 12/28/2024 [facility] Glucose 114 mg/dL High 70-99 BUN 20 mg/dL 8-27 Creatinine 1.45 mg/dL High 0.57-1.00 eGFR 34 mL/min/1.7 3 Low >59 BUN/Creatinine Ratio 14 12-28 Sodium 136 mmol/L 134-144 Potassium 3.6 mmol/L 3.5-5.2 Chloride 97 mmol/L 96-106 Carbon Dioxide, Total 25 mmol/L 20-29 Calcium 9.1 mg/dL 8.7-10.3 Protein, Total 6.9 g/dL 6.0-8.5 Albumin 4.1 g/dL 3.7-4.7 Globulin, Total 2.8 g/dL 1.5-4.5 Bilirubin, Total 0.9 mg/dL 0.0-1.2 Alkaline Phosphatase 90 IU/L 44-121 Ast (Sgot) 22 IU/L 0-40 Alt (SGPT) 10 IU/L 0-32 Lipid Panel 12/28/2024 [facility] Cholesterol, Total 141 mg/dL 100-199 Triglycerides 82 mg/dL 0-149 HDL Cholesterol 38 mg/dL Low >39 VLDL Cholesterol Michael 16 mg/dL 5-40 LDL Chol Calc (Nih) 87 mg/dL 0-99 LDL Calc Comment: TNP Urinalysis, Complete 12/28/2024 [facility] Specific [place] 1.015 1.005-1.03 0 pH 5.5 5.0-7.5 Urine-Color Yellow Yellow Appearance Cloudy Abnormal Clear WBC Esterase 2+ Abnormal Negative Protein 1+ Abnormal Negative/T race Glucose Negative Negative Ketones Negative Negative Occult Blood Negative Negative Bilirubin Negative Negative Urobilinogen,Se mi-Qn 1.0 mg/dL 0.2-1.0 Nitrite, Urine Negative Negative Microscopic Examination See below: 1 Microscopic Examination TNP WBC 11-30 /hpf Abnormal 0 - 5 RBC None seen /hpf 0 - 2 Epithelial Cells (non renal) >10 /hpf Abnormal 0 - 10 Epithelial Cells (renal) TNP Casts None seen /lpf None seen Cast Type TNP Crystals TNP Crystal Type TNP Mucus Threads TNP Bacteria Many Abnormal None seen/Few Yeast TNP Trichomonas TNP Comment TNP Hemoglobin A1c 12/28/2024 [facility] Hemoglobin A1c 5.9 % High 4.8-5.6 2 CBC With Differential/Pl atelet 12/28/2024 [facility] WBC 5.0 x10E3/uL 3.4-10.8 RBC 5.00 x10E6/uL 3.77-5.28 Hemoglobin 13.4 g/dL 11.1-15.9 Hematocrit 41.2 % 34.0-46.6 MCV 82 fL 79-97 MCH 26.8 pg 26.6-33.0 MCHC 32.5 g/dL 31.5-35.7 RDW 14.9 % 11.7-15.4 Platelets 262 x10E3/uL 150-450 Neutrophils 56 % Not Estab. Lymphs 23 % Not Estab. Monocytes 19 % Not Estab. Eos 1 % Not Estab. Basos 1 % Not Estab. Immature Cells TNP Neutrophils (Absolute) 2.8 x10E3/uL 1.4-7.0 Lymphs (Absolute) 1.2 x10E3/uL 0.7-3.1 Monocytes(Absol maylin) 0.9 x10E3/uL 0.1-0.9 Eos (Absolute) 0.1 x10E3/uL 0.0-0.4 Baso (Absolute) 0.1 x10E3/uL 0.0-0.2 Immature Granulocytes 0 % Not Estab. Immature Grans (Abs) 0.0 x10E3/uL 0.0-0.1 NRBC TNP Hematology Comments: TNP TSH+Free T4 12/28/2024 [facility] TSH 2.440 uIU/mL 0.450-4.50 0 T4,Free(Direct) 2.28 ng/dL High 0.82- 1.77 Culture Urine 08/27/2023 [facility] Lab Specimen Description URINE Special Requests NONE Culture >100,000 COL/ML <SEE NOTE> Abnormal 3 Report Status FINAL 08/30/2023 4 Comprehensive Metabolic Panl 08/27/2023 [facility] Glucose 108 mg/dL High (70-99) BUN 22 mg/dL (8-23) Creatinine 1.1 mg/dL High (0.5-1.0) Sodium 141 mmol/L (133-145) Potassium 3.0 mmol/L Low (3.6-5.2) Chloride 101 mmol/L (98-107) Bicarbonate 29 mmol/L (22-29) Anion Gap 11 (4-17) Albumin 4.4 GM/DL (3.4-4.8) Calcium 9.7 mg/dL (8.6-10.5) Bilirubin,Total 0.7 mg/dL (0-1.2 ) Total Protein 7.4 GM/DL (6.2-8.2 ) Ag Ratio 1.5 Ast 20 U/L (0-32) Alk Phos 91 U/L (35-104) Alt 15 U/L (0-33) Estimated GFR Creatinine 46 ML/MIN/1.7 3M2 5 Lipid Panel 08/27/2023 [facility] Cholesterol, Total 213 mg/dL High (<200) Triglyceride 99 mg/dL (<150) HDL Chol 64 mg/dL (>39) LDL Cholesterol, Calculated 129 mg/dL (0-130) Non HDL Cholesterol (Calc) 149 mg/dL (<160) Complete Abc With Diff 08/27/2023 [facility] WBC 9.3 K/MM3 (4.0-11.0) RBC 5.17 M/MM3 (4.20-5.40 ) HGB 14.4 GM/DL (11.7-15.5 ) HCT 44.7 % (35.7-45.8 ) MCV 86.5 FL (80.0-100. 0) MCH 27.9 pg (27.0-34.0 ) MCHC 32.2 g/dL Low (33.0-37.0 ) PLT 340 K/MM3 (150-460) RDW-SD 56.1 FL High (<47.0) MPV 9.9 FL (9.4-12.4) Automated NRBC 0.0 #/100WBC'S Abs. NRBC 0.0 K/MM3 Neut # 5.9 K/MM3 (1.3-7.0) Lymph # 2.2 K/MM3 (0.8-3.1) [place]# 1.0 K/MM3 High (0.4-0.9) Eo # 0.0 K/MM3 (0.0-0.4) Baso # 0.1 K/MM3 (0.0-0.1) Abs. Imm Gran 0.1 K/MM3 Neut 63.5 % (44-76) Lymph 23.9 % (15-43) Monocyte 10.8 % High (4.5-10.5) Eo 0.4 % (0-6) Baso 0.5 % (0-2) Imm Gran 0.9 % TSH With Reflex To FT4 08/27/2023 [facility] TSH With Reflex To FT4 2.87 uIU/mL (0.4-4.2) Complete Abc With Diff 08/04/2022 [facility] WBC 6.5 K/MM3 (4.0-11.0) RBC 5.04 M/MM3 (4.20-5.40 ) HGB 14.1 GM/DL (11.7-15.5 ) HCT 42.1 % (35.7-45.8 ) MCV 83.5 FL (80.0-100. 0) MCH 28.0 pg (27.0-34.0 ) MCHC 33.5 g/dL (33.0-37.0 ) PLT 252 K/MM3 (150-460) RDW-SD 50.0 FL High (<47.0) MPV 9.8 FL (9.4-12.4) Automated NRBC 0.0 #/100WBC'S Abs. NRBC 0.0 K/MM3 Neut # 3.9 K/MM3 (1.3-7.0) Lymph # 1.8 K/MM3 (0.8-3.1) [place]# 0.6 K/MM3 (0.4-0.9) Eo # 0.1 K/MM3 (0.0-0.4) Baso # 0.1 K/MM3 (0.0-0.1) Abs. Imm Gran 0.0 K/MM3 Neut 59.7 % (44-76) Lymph 27.8 % (15-43) Monocyte 9.3 % (4.5-10.5) Eo 1.5 % (0-6) Baso 1.1 % (0-2) Imm Gran 0.6 % Urinalysis Complete 08/04/2022 [facility] Appear/Color YELLOW 6 SP. [place] 1.015 (1.002-1.0 30) Urine PH 6.5 (5.0-8.0) Urine Albumin 1+ Abnormal (Neg) Urine Glucose NEGATIVE (Neg) Urine Ketones NEGATIVE (Neg) Urine Bilirubin NEGATIVE (Neg) Urine Hemoglobin TRACE Abnormal (Neg) Urine Nitrite POSITIVE Abnormal (Neg) Urine Leukocyte 3+ Abnormal (Neg) Urobilinogen NORMAL mg/dL (Norm) Urine WBCs >182 /HPF High (0-5) Urine RBCs 11 /HPF High (0-3) Bacteria HEAVY HPF Abnormal (Neg) Squamous Epith 62 /HPF High (0-8) Comprehensive Metabolic Panl 08/04/2022 [facility] Glucose 105 mg/dL High (70-99) BUN 14 mg/dL (8-23) Creatinine 1.0 mg/dL (0.5-1.0) Sodium 142 mmol/L (133-145) Potassium 3.8 mmol/L (3.6-5.2) Chloride 105 mmol/L (98-107) Bicarbonate 28 mmol/L (22-29) Anion Gap 9 (4-17) Albumin 4.0 GM/DL (3.4-4.8) Calcium 9.6 mg/dL (8.6-10.5) Bilirubin,Total 0.9 mg/dL (0-1.2 ) Total Protein 6.7 GM/DL (6.2-8.2 ) Ag Ratio 1.5 Ast 19 U/L (0-32) Alk Phos 76 U/L (35-104) Alt 16 U/L (0-33) Estimated GFR Creatinine 53 ML/MIN/1.7 3M2 7 Lipid Panel 08/04/2022 [facility] Cholesterol, Total 161 mg/dL (<200) Triglyceride 87 mg/dL (<150) HDL Chol 51 mg/dL (>39) LDL Cholesterol, Calculated 93 mg/dL (0-130) Non HDL Cholesterol (Calc) 110 mg/dL (<160) TSH 08/04/2022 [facility] TSH 4.31 uIU/mL High (0.4-4.2) 1 Microscopic was jackie cated and was performed. 2 Prediabetes: 5.7 - 6 .4 Diabetes: >6.4 Glycemic control for adults with diabetes: <7.0 3 >100,000 COL/ML ESCH ERICHIA COLI This isolate was identified using Maldi-TOF system These AST results were performed on the [employer] 2 ID and AST system 4 FINAL 08/30/2023 ORGANISM >100,000 COL/ML ESCHERICHIA COLI This isolate was identified using Maldi-TOF system These AST results were performed on the [employer] 2 ID and AST system METHOD MIN. INHIB. CONC. (MCG/ML) AMPICILLIN SUSCEPTIBLE AMPICILLIN/SULBACTAM SUSCEPTIBLE CEFAZOLIN SUSCEPTIBLE CEFEPIME SUSCEPTIBLE CEFTRIAXONE SUSCEPTIBLE CIPROFLOXACIN RESISTANT ERTAPENEM SUSCEPTIBLE GENTAMICIN SUSCEPTIBLE LEVOFLOXACIN RESISTANT NITROFURANTOIN SUSCEPTIBLE PIPERACILLIN/TAZOBAC SUSCEPTIBLE TRIMETH/SULFAMETHOX RESISTANT 5 Creatinine based est imated glomerular filtration (eGFR) in adults is calculated using the National [employer] recommended 2020 CKD-EPI equation. Estimates GFR from serum creatinine, age and sex. 6 TURBID 7 Creatinine based est imated glomerular filtration (eGFR) in adults is calculated using the National [employer] recommended 2020 CKD-EPI equation. Estimates GFR from serum creatinine, age and sex. Procedures Date Code Description Status 12/28/2024 54217 Collection Of Venous Blood B y Venipuncture Completed Medical Devices Description No Information Available Encounters Type Date Location Provider Dx Diagnosis Office Visit 12/26/2024 10:09a Main Office Warren Tobias M.D. I48.91 Unspecified atrial fibrillation I10 Essential (primary) hypertension Assessments Date Code Description Provider 01/23/2025 I48.91 Atrial fibrillation Warren Chisholm M.D. 01/23/2025 I10 Essential hypertension Warren Tobias M.D. 01/23/2025 E04.2 Multinodular goiter Wraren Chisholm M.D. 01/23/2025 F32.A Mild depression Warren gongora M.D. Plan of Treatment Future Appointment(s):* 06/05/2025 3:15 pm - Warren Tobias M.D. at Main Office 01/23/2025 - Warren Tobias M.D.* I48.91 Atrial fibrillation * I10 Essential hypertension * E04.2 Multinodular goiter * F32.A Mild depression Functional Status Description No Information Available Mental Status Description No Information Available Referrals Refer to Dr Reason for Referral Status Appt Nguyễn e [facility] Cardiology (New Patients) AFIB Closed 12/06/[address] [place] [address] [phone] Gladis Davis MD BILAT HAND WITH QUESTION OF CARPAL TUNNEL SYNDROME Closed 07/09/2023 [address] [place], [place] [id number] [phone]
--- OUTSIDE RECORDS SUMMARY | 2025-02-15 18:03 | XMS_ITS ---
Author Organization [facility] [place] Care Team Providers Care Financial Planning Assistant Name Role Phone Wanda Brooks Unavailable Unavailable Oxana Yuen Unavailable Unavailabl Cris Flanagan Unavailable Unavailable Allergies and adverse reactions Code CodeSystem Substance Reaction Severity StartDate Concern Status PCN Unknown Unknown active Care Team Name Role Address Phone Organization Dates Wanda Brooks Attending Physician [address] [facility] [address], [place], [address], [place] (Office): : : [facility] [place] 08/08/2021 - 09/04/2021 Oxana Yune Attending Physician [address] [place] [address], [phone], [place] (Office): [facility] [place] 08/08/2021 - 09/04/2021 Cris Samuels Attending Physician [address] [place] [address], [place], [address], [place] (Office): : [facility] [place] 08/08/2021 - 09/04/2021 Immunizations Immunization Status Vaccine Details Vaccine Code CodeSystem Date Notes Influenza cancelled Influenza, high-dose, split virus, trivalent, injectable, preservative free 135 CVX created date: 05/16/2013 consent date: 05/16/2013 allergic Pneumovax Dose 1 cancelled pneumococcal polysaccharide vaccine, 23 valent 33 CVX created date: 05/16/2013 consent date: 05/16/2013 allergic TB 1 Step Mantoux (PPD) completed tuberculin skin test; purified protein derivative solution, intradermal lotNumber: [id number] Given Right Forearm 96 CVX created date: 05/13/2013 consent date: 05/13/2013 administer ed date: 05/13/2013 TB 2 Step Mantoux Skin Test completed tuberculin skin test; purified protein derivative solution, intradermal lotNumber: [id number] expiry: 07/24/2022 Given 0.1 ml Left Forearm intradermally Step 1 of Multi-step 96 CVX created date: 08/23/2021 consent date: 08/23/2021 administer ed date: 08/23/2021 COVID-19 Vaccine Dose 1 completed unknown vaccine or immune globulin Mfg: Pfizer COVID 19 999 CVX created date: 08/08/2021 administer ed date: 01/08/2021 COVID-19 Vaccine Dose 2 completed unknown vaccine or immune globulin Mfg: Pfizer COVID 19 999 CVX created date: 08/08/2021 administer ed date: 01/29/2021 COVID-19 Vaccine Additional Dose/Booster cancelled unknown vaccine or immune globulin 999 CVX created date: 08/13/2021 consent date: 08/13/2021 Educated by Kristine Cerda on 08/13/2021 Mental Status Section Date Assessment Total Score Description 09/04/2021 CAM 0 No delirium ind icated 08/11/2021 BIMS 15 cognitively int act CAM 0 No delirium ind icated PHQ-9 10 moderate depres michelle Problems Problem # Description Date of onset Resolved Date Code CodeSystem Concern Status 1 AGE-RELATED OSTEOPOROSIS WITHOUT CURRENT PATHOLOGICAL FRACTURE 08/08/[address] active 2 CHRONIC KIDNEY DISEASE, STAGE 3 UNSPECIFIED 08/08/[address] active 3 DISPLACED FRACTURE OF BASE OF NECK OF RIGHT FEMUR, SUBSEQUENT ENCOUNTER FOR CLOSED FRACTURE WITH ROUTINE HEALING 08/08/2021 08/08/[address] completed 4 ESSENTIAL (PRIMARY) HYPERTENSION 08/08/[address] active 5 HYPOTHYROIDISM, UNSPECIFIED 08/08/[address] active 6 OTHER FRACTURE OF HEAD AND NECK OF RIGHT FEMUR, SUBSEQUENT ENCOUNTER FOR CLOSED FRACTURE WITH ROUTINE HEALING 08/08/[address] active 7 PAROXYSMAL ATRIAL FIBRILLATION 08/08/[address] active 8 UNSPECIFIED MACULAR DEGENERATION 08/08/[address] active Reason for Referral No Reasons for Referral Entered Social History Social History Observation Description Start Date End Date Code Code System Current Smoking Status Tobacco smoking consumption unknown 300042133 SNOMED CT Sex Assigned At Female 1935 [address]-7 [facility] Vital Signs Code Code System Vitals Name Values and Units Timing Information 97508-8 INC Pain Level Value=0.0 09/04/2021 57161-9 LOINC Weight Kzqbh=520.2 Units=Lbs 08/2021 9279-1 LOINC Respiratory Rate Value=19.0 Units=/m in 09/04/2021 88707-6 INC O2 % BldC Oximetry Value=96.0 Units= % 09/04/2021 8310-5 INC Body Temperature Value=97.3 Units=?? F 09/04/2021 8867-4 INC Heart rate Value=78.0 Units=/min 08/2021 8462-4 LOINC Blood Pressure-Diastolic Value=74 Un its=mmHg 08/13/2021 8480-6 LOINC Blood Pressure-Systolic Exfbn=156 Un its=mmHg 08/13/2021 8302-2 LOINC Height Value=60.0 Units=Inches 08/08/2021
== END 2025-02-15 15:40 | disposition home or self-care (01) ==
LOC: HO.ACS 15:21
PROVIDERS: PCP Internal Medicine; Visit Provider Internal Medicine Medical Oncology
DX: Z79.01 Long term (current) use of anticoagulants (principal)

== ENCOUNTER → 2025-02-15 15:21 | Outpatient (BNVA) | payer MEDICARE, SELFPAY | PROVIDERS: PCP Internal Medicine; Visit Provider Internal Medicine Medical Oncology | DX: I48.20 Chronic atrial fibrillation, unspecified (principal); Z79.01 Long term (current) use of anticoagulants; Z51.81 Encounter for therapeutic drug level monitoring | CPT/HCPCS: 85610; 99211 ==

== ENCOUNTER 2025-02-22 15:40 | Outpatient (AMB) | payer MEDICARE, SELFPAY ==
[2025-02-22 15:48] LABS: ~PT, ~INR - Anti Coag Clinic 2.2 (0.9-1.1)
--- NOTE | 2025-02-22 15:55 | MHC.OFFVISCO ---
Intake Intake Visit Reasons: Anticoagulation Allergies Penicillins Allergy (Intermediate, Verified 02/22/25 15:40) RASH Medication List - Last Reconciled 02/22/25 by Alondra Hdz RN latanoprost 0.005% drps ophthalmic (eye) levothyroxine 150 mcg PO DAILY metoprolol succinate ER 50 mg PO DAILY mirtazapine 3.75 mg PO BEDTIME nifedipine ER 30 mg PO DAILY [occuvite PO] triamterene-hydrochlorothiazid 37.5-25 mg 1 cap PO DAILY warfarin 2.5 mg See Protocol PO DAILY Nursing Note INR: 2.2 in therapeutic range Medications and supplements reviewed pt had not been taking her occuvite eye vitamin for over a month- may be reason why INR elevated previously, plus has decreased appetite, she states she ate a lot of greens recently when INR elevated, she eulalio be resuming eye vitamin Denies any signs and symptoms of bleeding or bruising or clotting. Bleeding, bruising, clotting discussed Nutritional guidance given - keep up weekly greens, make sure to eat protein Dose: keep same dose 5mg x 2 days/ 2.5mg x 5 days F/U INR: 4 weeks Patient verbalizes understanding of instructions given Coding Level of Care Code Est Patient Level 1 Diagnoses Current use of anticoagulant therapy Z79.01 Results AMB INR Fingerstick AMB INR Fingerstick 2.2 Last Edit by Alondra Hdz RN on 02/22/25 15:48 MANUAL ENTRY Assessment & Plan Assessment & Plan (1) Current use of anticoagulant therapy: Code(s): Z79.01 - intermediate (current) use of anticoagulants Category: Medical
--- OUTSIDE RECORDS SUMMARY | 2025-02-22 17:17 | XMS_ITS | Continuity of Care Document ---
Author Organization [facility] [address] [facility] [address] [place] [address] Phone [phone] Problems Active Problems Provider Date Hypothyroidism Warren [...] Every Day 90tabs Warren Tobias M.D. Triamterene/Hydrochlor [id number] Capsules Take 1 Capsule By Mouth Every Day 90caps Warren Tobias M.D. Levothyroxine [id number] Tablets Take 1 Tablet By Mouth Every [...] Comment: TNP Urinalysis, Complete 12/28/2024 [facility] [place] 1.015 1.005-1.03 0 pH 5.5 5.0-7.5 Urine-Color [...] ng/dL High 0.82- 1.77 Culture Urine 08/27/2023 [facility] Reference Lab Specimen Description URINE Special Requests NONE Culture >100,000 COL/ML <SEE NOTE> Abnormal 3 Report Status FINAL 08/30/2023 4 Comprehensive Metabolic Panl 08/27/2023 [facility] Reference Lab Glucose 108 mg/dL High [...] 46 ML/MIN/1.7 3M2 5 Lipid Panel 08/27/2023 [facility] Reference Lab Cholesterol, Total 213 mg/dL High (<200) Triglyceride 99 mg/dL (<150) HDL Chol 64 mg/dL (>39) LDL Cholesterol, Calculated 129 mg/dL (0-130) Non HDL Cholesterol (Calc) 149 mg/dL (<160) Complete Abc With Diff 08/27/2023 [facility] Reference Lab WBC 9.3 K/MM3 (4.0-11.0) [...] K/MM3 (1.3-7.0) Lymph # 2.2 K/MM3 (0.8-3.1) [place]# 1.0 K/MM3 High (0.4-0.9) Eo # 0.0 K/MM3 (0.0-0.4) Baso # 0.1 K/MM3 (0.0-0.1) Abs. Imm Gran 0.1 K/MM3 Neut 63.5 % (44-76) Lymph 23.9 % (15-43) Monocyte 10.8 % High (4.5-10.5) Eo 0.4 % (0-6) Baso 0.5 % (0-2) Imm Gran 0.9 % TSH With Reflex To FT4 08/27/2023 [facility] Reference Lab TSH With Reflex To FT4 2.87 uIU/mL (0.4-4.2) Complete Abc With Diff 08/04/2022 [facility] Reference Lab WBC 6.5 K/MM3 (4.0-11.0) [...] K/MM3 (1.3-7.0) Lymph # 1.8 K/MM3 (0.8-3.1) [place]# 0.6 K/MM3 (0.4-0.9) Eo # 0.1 K/MM3 (0.0-0.4) Baso # 0.1 K/MM3 (0.0-0.1) Abs. Imm Gran 0.0 K/MM3 Neut 59.7 % (44-76) Lymph 27.8 % (15-43) Monocyte 9.3 % (4.5-10.5) Eo 1.5 % (0-6) Baso 1.1 % (0-2) Imm Gran 0.6 % Urinalysis Complete 08/04/2022 [facility] Reference Lab Appear/Color YELLOW 6 SP. [place] 1.015 (1.002-1.0 30) Urine PH 6.5 (5.0-8.0) [...] /HPF High (0-8) Comprehensive Metabolic Panl 08/04/2022 [facility] Reference Lab Glucose 105 mg/dL High [...] 53 ML/MIN/1.7 3M2 7 Lipid Panel 08/04/2022 [facility] Reference Lab Cholesterol, Total 161 mg/dL (<200) Triglyceride 87 mg/dL (<150) HDL Chol 51 mg/dL (>39) LDL Cholesterol, Calculated 93 mg/dL (0-130) Non HDL Cholesterol (Calc) 110 mg/dL (<160) TSH 08/04/2022 [facility] Reference Lab TSH 4.31 uIU/mL High [...] sex. Procedures Date Code Description Status 12/28/2024 82283 Collection Of Venous Blood B y Venipuncture Completed Medical Devices Description No Information Available Encounters Type Date Location Provider Dx Diagnosis Office Visit 12/26/2024 10:09a Main Office Warren Tobias M.D. I48.91 Unspecified atrial fibrillation I10 Essential (primary) hypertension Assessments Date Code Description Provider 01/23/2025 I48.91 Atrial fibrillation Warren Chisholm M.D. 01/23/2025 I10 Essential hypertension Warren Tobias M.D. 01/23/2025 E04.2 Multinodular goiter Warren Chisholm M.D. 01/23/2025 F32.A Mild depression Warren [...] Reason for Referral Status Appt Nguyễn e [facility] Cardiology (New Patients) AFIB Closed 12/06/[address] [place] [address] [phone] Gladis Davis MD BILAT HAND WITH QUESTION OF CARPAL TUNNEL SYNDROME Closed 07/09/2023 [address] [place], [place] [id number] [phone]
== END 2025-02-22 15:59 | disposition home or self-care (01) ==
LOC: HO.ACS 15:40
PROVIDERS: PCP Internal Medicine; Visit Provider Internal Medicine Medical Oncology
DX: Z79.01 Long term (current) use of anticoagulants (principal)

== ENCOUNTER → 2025-02-22 15:40 | Outpatient (BNVA) | payer MEDICARE, SELFPAY | PROVIDERS: PCP Internal Medicine; Visit Provider Internal Medicine Medical Oncology | DX: I48.20 Chronic atrial fibrillation, unspecified (principal); Z79.01 Long term (current) use of anticoagulants; Z51.81 Encounter for therapeutic drug level monitoring | CPT/HCPCS: 85610; 99211 ==

== ENCOUNTER 2025-03-22 15:15 | Outpatient (AMB) | payer MEDICARE, SELFPAY ==
--- OUTSIDE RECORDS SUMMARY | 2025-03-22 15:17 | XMS_ITS | Continuity of Care Document ---
Author Organization [facility] [address] [facility] [address] [place] [address] Phone [phone] Problems Active Problems Provider Date Hypothyroidism Warren [...] Every Day 90caps Warren Tobias M.D. Levothyroxine [id number] Tablets Take 1 Tablet By Mouth Every [...] Comment: TNP Urinalysis, Complete 12/28/2024 [facility] [place] 1.015 1.005-1.03 0 pH 5.5 5.0-7.5 Urine-Color [...] ng/dL High 0.82- 1.77 Culture Urine 08/27/2023 [facility] Reference Lab Specimen Description URINE Special Requests NONE Culture >100,000 COL/ML <SEE NOTE> Abnormal 3 Report Status FINAL 08/30/2023 4 Comprehensive Metabolic Panl 08/27/2023 [facility] Reference Lab Glucose 108 mg/dL [...] 46 ML/MIN/1.7 3M2 5 Lipid Panel 08/27/2023 [facility] Reference Lab Cholesterol, Total 213 mg/dL High (<200) Triglyceride 99 mg/dL (<150) HDL Chol 64 mg/dL (>39) LDL Cholesterol, Calculated 129 mg/dL (0-130) Non HDL Cholesterol (Calc) 149 mg/dL (<160) Complete Abc With Diff 08/27/2023 [facility] Reference Lab WBC 9.3 K/MM3 (4.0-11.0) RBC [...] K/MM3 (1.3-7.0) Lymph # 2.2 K/MM3 (0.8-3.1) [place]# 1.0 K/MM3 High (0.4-0.9) Eo # 0.0 K/MM3 (0.0-0.4) Baso # 0.1 K/MM3 (0.0-0.1) Abs. Imm Gran 0.1 K/MM3 Neut 63.5 % (44-76) Lymph 23.9 % (15-43) Monocyte 10.8 % High (4.5-10.5) Eo 0.4 % (0-6) Baso 0.5 % (0-2) Imm Gran 0.9 % TSH With Reflex To FT4 08/27/2023 [facility] Lab TSH With Reflex To FT4 2.87 uIU/mL (0.4-4.2) Complete Abc With Diff 08/04/2022 [facility] Reference Lab WBC 6.5 K/MM3 (4.0-11.0) RBC [...] K/MM3 (1.3-7.0) Lymph # 1.8 K/MM3 (0.8-3.1) [place]# 0.6 K/MM3 (0.4-0.9) Eo # 0.1 K/MM3 (0.0-0.4) Baso # 0.1 K/MM3 (0.0-0.1) Abs. Imm Gran 0.0 K/MM3 Neut 59.7 % (44-76) Lymph 27.8 % (15-43) Monocyte 9.3 % (4.5-10.5) Eo 1.5 % (0-6) Baso 1.1 % (0-2) Imm Gran 0.6 % Urinalysis Complete 08/04/2022 [facility] Reference Lab Appear/Color YELLOW 6 SP. [place] 1.015 (1.002-1.0 30) Urine PH 6.5 (5.0-8.0) [...] /HPF High (0-8) Comprehensive Metabolic Panl 08/04/2022 [facility] Reference Lab Glucose 105 mg/dL [...] 53 ML/MIN/1.7 3M2 7 Lipid Panel 08/04/2022 [facility] Lab Cholesterol, Total 161 mg/dL (<200) Triglyceride 87 mg/dL (<150) HDL Chol 51 mg/dL (>39) LDL Cholesterol, Calculated 93 mg/dL (0-130) Non HDL Cholesterol (Calc) 110 mg/dL (<160) TSH 08/04/2022 [facility] Lab TSH 4.31 uIU/mL High (0.4-4.2) [...] sex. Procedures Date Code Description Status 12/28/2024 82767 Collection Of Venous Blood B y Venipuncture [...] Reason for Referral Status Appt Nguyễn e [facility] Cardiology (New Patients) AFIB Closed 12/06/[address] [place] [address] [phone] Gladis Davis MD BILAT HAND WITH QUESTION OF CARPAL TUNNEL SYNDROME Closed 07/09/2023 [address] [place], [place] [id number] [phone]
[2025-03-22 15:23] LABS: Prothrombin Time Whole Bld POC 35.2 sec (11.1-13.5); ~PT, ~INR - Anti Coag Clinic 2.9 (0.9-1.1)
--- NOTE | 2025-03-22 15:29 | MHC.OFFVISCO ---
Intake Intake Visit Reasons: Anticoagulation Allergies Penicillins Allergy (Intermediate, Verified 03/22/25 15:17) RASH Medication List - Last Reconciled 03/22/25 by Alondra Hdz RN latanoprost 0.005% drps ophthalmic (eye) levothyroxine 150 mcg PO DAILY metoprolol succinate ER 50 mg PO DAILY mirtazapine 3.75 mg PO BEDTIME nifedipine ER 30 mg PO DAILY [occuvite PO] triamterene-hydrochlorothiazid 37.5-25 mg 1 cap PO DAILY warfarin 2.5 mg See Protocol PO DAILY Nursing Note INR: 2.9 in therapeutic range Medications and supplements reviewed No changes in health, diet, medications, or supplements, Denies any signs and symptoms of bleeding or bruising or clotting. Bleeding, bruising, clotting discussed Nutritional guidance given Dose: KEEP SAME DOSE 5MG X 2 DAYS/ 2.5G X 5 DAYS F/U INR: 1 MONTH Patient verbalizes understanding of instructions given Coding Level of Care Code Est Patient Level 1 Diagnoses Current use of anticoagulant therapy Z79.01 Results AMB INR Fingerstick AMB INR Fingerstick 2.9 Last Edit by Alondra Hdz RN on 03/22/25 15:27 MANUAL ENTRY Assessment & Plan Assessment & Plan (1) Current use of anticoagulant therapy: Code(s): Z79.01 - buttermaker (current) use of anticoagulants Category: Medical
== END 2025-03-22 15:31 | disposition home or self-care (01) ==
LOC: HO.ACS 15:15
PROVIDERS: PCP Internal Medicine; Visit Provider Internal Medicine Medical Oncology
DX: Z79.01 Long term (current) use of anticoagulants (principal)

== ENCOUNTER → 2025-03-22 15:15 | Outpatient (BNVA) | payer MEDICARE, SELFPAY | PROVIDERS: PCP Internal Medicine; Visit Provider Internal Medicine Medical Oncology | DX: I48.20 Chronic atrial fibrillation, unspecified (principal); Z79.01 Long term (current) use of anticoagulants; Z51.81 Encounter for therapeutic drug level monitoring | CPT/HCPCS: 85610; 99211 ==

== ENCOUNTER 2025-04-19 15:07 | Outpatient (AMB) | payer MEDICARE, SELFPAY ==
[2025-04-19 15:17] LABS: Prothrombin Time Whole Bld POC 30.9 sec (11.1-13.5); ~PT, ~INR - Anti Coag Clinic 2.6 (0.9-1.1)
--- NOTE | 2025-04-19 15:28 | MHC.OFFVISCO ---
Intake Intake Visit Reasons: Anticoagulation Allergies Penicillins Allergy (Intermediate, Verified 04/19/25 15:09) RASH Medication List - Last Reconciled 04/19/25 by Samantha Potter RN latanoprost 0.005% drps ophthalmic (eye) levothyroxine 150 mcg PO DAILY metoprolol succinate ER 50 mg PO DAILY mirtazapine 3.75 mg PO BEDTIME nifedipine ER 30 mg PO DAILY [occuvite PO] triamterene-hydrochlorothiazid 37.5-25 mg 1 cap PO DAILY warfarin 2.5 mg See Protocol PO DAILY Nursing Note INR: 2.6 in therapeutic range of 2-3 Medications and supplements reviewed No changes in health, diet, medications, or supplements, Denies any signs and symptoms of bleeding or bruising or clotting. Bleeding, bruising, clotting discussed Nutritional guidance given to balance fruits and vegetables Dose: keep same dose of 2.5mg X 5 days and 5mg X 2 days F/U INR: 4 weeks Patient verbalizes understanding of instructions given Coding Level of Care Code Est Patient Level 1 Diagnoses Current use of anticoagulant therapy Z79.01 Results AMB INR Fingerstick AMB INR Fingerstick 2.6 Last Edit by Samantha Potter RN on 04/19/25 15:18 interface delay Assessment & Plan Assessment & Plan (1) Current use of anticoagulant therapy: Code(s): Z79.01 - assisted (current) use of anticoagulants Category: Medical
--- OUTSIDE RECORDS SUMMARY | 2025-04-19 18:21 | XMS_ITS | Continuity of Care Document ---
Author Organization [facility] 2 [facility] [address] [place] [address] Phone [phone] Problems Active Problems Provider Date Hypothyroidism Warren Tobias M.D. Onset: 1 Essential hypertension Warren Tobias M.D. O nset: 08/11/2022 Multinodular goiter Warren Tobias M.D. Onse t: 08/11/2022 Atrial fibrillation Warren Tobias M.D. Onse t: 05/18/2023 Social History Type Date Description Comments Sex Female Sex Unknown Lives With Son ETOH Use [...] Every Day 90caps Warren Tobias M.D. Levothyroxine [id number] Tablets Take 1 Tablet By Mouth Every [...] Comment: TNP Urinalysis, Complete 12/28/2024 [facility] [place] 1.015 1.005-1.03 0 pH 5.5 5.0-7.5 Urine-Color [...] ng/dL High 0.82- 1.77 Culture Urine 08/27/2023 [facility] Reference Lab Specimen Description URINE Special Requests NONE Culture >100,000 COL/ML <SEE NOTE> Abnormal 3 Report Status FINAL 08/30/2023 4 Comprehensive Metabolic Panl 08/27/2023 [facility] Reference Lab Glucose 108 mg/dL High [...] 46 ML/MIN/1.7 3M2 5 Lipid Panel 08/27/2023 [facility] Lab Cholesterol, Total 213 mg/dL High (<200) Triglyceride 99 mg/dL (<150) HDL Chol 64 mg/dL (>39) LDL Cholesterol, Calculated 129 mg/dL (0-130) Non HDL Cholesterol (Calc) 149 mg/dL (<160) Complete Abc With Diff 08/27/2023 [facility] Lab WBC 9.3 K/MM3 (4.0-11.0) [...] K/MM3 (1.3-7.0) Lymph # 2.2 K/MM3 (0.8-3.1) [place]# 1.0 K/MM3 High (0.4-0.9) Eo # 0.0 K/MM3 (0.0-0.4) Baso # 0.1 K/MM3 (0.0-0.1) Abs. Imm Gran 0.1 K/MM3 Neut 63.5 % (44-76) Lymph 23.9 % (15-43) Monocyte 10.8 % High (4.5-10.5) Eo 0.4 % (0-6) Baso 0.5 % (0-2) Imm Gran 0.9 % TSH With Reflex To FT4 08/27/2023 [facility] Lab TSH With Reflex To FT4 2.87 uIU/mL (0.4-4.2) Complete Abc With Diff 08/04/2022 [facility] Reference Lab WBC 6.5 K/MM3 (4.0-11.0) [...] K/MM3 (1.3-7.0) Lymph # 1.8 K/MM3 (0.8-3.1) [place]# 0.6 K/MM3 (0.4-0.9) Eo # 0.1 K/MM3 (0.0-0.4) Baso # 0.1 K/MM3 (0.0-0.1) Abs. Imm Gran 0.0 K/MM3 Neut 59.7 % (44-76) Lymph 27.8 % (15-43) Monocyte 9.3 % (4.5-10.5) Eo 1.5 % (0-6) Baso 1.1 % (0-2) Imm Gran 0.6 % Urinalysis Complete 08/04/2022 [facility] Reference Lab Appear/Color YELLOW 6 SP. [place] 1.015 (1.002-1.0 30) Urine PH 6.5 (5.0-8.0) [...] /HPF High (0-8) Comprehensive Metabolic Panl 08/04/2022 [facility] Reference Lab Glucose 105 mg/dL High [...] 53 ML/MIN/1.7 3M2 7 Lipid Panel 08/04/2022 [facility] Lab Cholesterol, Total 161 mg/dL (<200) Triglyceride 87 mg/dL (<150) HDL Chol 51 mg/dL (>39) LDL Cholesterol, Calculated 93 mg/dL (0-130) Non HDL Cholesterol (Calc) 110 mg/dL (<160) TSH 08/04/2022 [facility] Lab TSH 4.31 uIU/mL High [...] sex. Procedures Date Code Description Status 12/28/2024 09521 Collection Of Venous Blood B y Venipuncture Completed Medical Devices Description No Information Available Encounters Type Date Location Provider Dx Diagnosis Office Visit 03/28/2025 9:58a Main Office Warren Tobias M.D. I10 Essential (primary) hypertension I48.91 Unspecified atrial f ibrillation Assessments Date Code Description Provider 03/28/2025 I10 Essential hypertension Warren Tobias M.D. 03/28/2025 I48.91 Atrial fibrillation Warren Chisholm M.D. Plan of Treatment Future Appointment(s):* 06/05/2025 3:15 pm - Warren Tobias M.D. at Main Office 01/23/2025 - Warren Tobias M.D.* I48.91 Atrial fibrillation * I10 Essential hypertension * E04.2 Multinodular goiter * F32.A Mild depression Functional Status Description No Information Available Mental Status Description No Information Available Referrals Refer to Dr Reason for Referral Status Appt Nguyễn e [facility] Cardiology (New Patients) AFIB Closed 12/06/[address] [place] [address] [phone] Gladis Davis MD BILROSSY HAND WITH QUESTION OF CARPAL TUNNEL SYNDROME Closed 07/09/2023 [address] [place] [address] [phone]
== END 2025-04-19 15:30 | disposition home or self-care (01) ==
LOC: HO.ACS 15:07
PROVIDERS: PCP Internal Medicine; Visit Provider Internal Medicine Medical Oncology
DX: Z79.01 Long term (current) use of anticoagulants (principal)

== ENCOUNTER → 2025-04-19 15:07 | Outpatient (BNVA) | payer MEDICARE, SELFPAY | PROVIDERS: PCP Internal Medicine; Visit Provider Internal Medicine Medical Oncology | DX: I48.20 Chronic atrial fibrillation, unspecified (principal); Z79.01 Long term (current) use of anticoagulants; Z51.81 Encounter for therapeutic drug level monitoring | CPT/HCPCS: 85610; 99211 ==

== ENCOUNTER 2025-05-17 15:17 | Outpatient (AMB) | payer MEDICARE, SELFPAY ==
--- OUTSIDE RECORDS SUMMARY | 2025-05-17 15:20 | XMS_ITS | Continuity of Care Document ---
Author Organization [facility] 2 [facility] [address] [place] [address] Phone [phone] Problems Active Problems Provider Date Hypothyroidism Warren [...] Every Day 90tabs Warren Tobias M.D. Triamterene/Hydrochlor kiewjykjc24.5-25mg Capsules Take 1 Capsule By Mouth Every Day 90caps Warren Tobias M.D. Levothyroxine [id number] Tablets Take 1 Tablet By Mouth Every [...] Comment: TNP Urinalysis, Complete 12/28/2024 [facility] [place] 1.015 1.005-1.03 0 pH 5.5 5.0-7.5 Urine-Color [...] ng/dL High 0.82- 1.77 Culture Urine 08/27/2023 [facility] Reference Lab Specimen Description URINE Special Requests NONE Culture >100,000 COL/ML <SEE NOTE> Abnormal 3 Report Status FINAL 08/30/2023 4 Comprehensive Metabolic Panl 08/27/2023 [facility] Reference Lab Glucose 108 mg/dL High [...] 46 ML/MIN/1.7 3M2 5 Lipid Panel 08/27/2023 [facility] Reference Lab Cholesterol, Total 213 mg/dL High (<200) Triglyceride 99 mg/dL (<150) HDL Chol 64 mg/dL (>39) LDL Cholesterol, Calculated 129 mg/dL (0-130) Non HDL Cholesterol (Calc) 149 mg/dL (<160) Complete Abc With Diff 08/27/2023 [facility] Reference Lab WBC 9.3 K/MM3 (4.0-11.0) [...] K/MM3 (1.3-7.0) Lymph # 2.2 K/MM3 (0.8-3.1) [place]# 1.0 K/MM3 High (0.4-0.9) Eo # 0.0 K/MM3 (0.0-0.4) Baso # 0.1 K/MM3 (0.0-0.1) Abs. Imm Gran 0.1 K/MM3 Neut 63.5 % (44-76) Lymph 23.9 % (15-43) Monocyte 10.8 % High (4.5-10.5) Eo 0.4 % (0-6) Baso 0.5 % (0-2) Imm Gran 0.9 % TSH With Reflex To FT4 08/27/2023 [facility] Reference Lab TSH With Reflex To FT4 2.87 uIU/mL (0.4-4.2) Complete Abc With Diff 08/04/2022 [facility] Reference Lab WBC 6.5 K/MM3 (4.0-11.0) [...] K/MM3 (1.3-7.0) Lymph # 1.8 K/MM3 (0.8-3.1) [place]# 0.6 K/MM3 (0.4-0.9) Eo # 0.1 K/MM3 (0.0-0.4) Baso # 0.1 K/MM3 (0.0-0.1) Abs. Imm Gran 0.0 K/MM3 Neut 59.7 % (44-76) Lymph 27.8 % (15-43) Monocyte 9.3 % (4.5-10.5) Eo 1.5 % (0-6) Baso 1.1 % (0-2) Imm Gran 0.6 % Urinalysis Complete 08/04/2022 [facility] Reference Lab Appear/Color YELLOW 6 SP. [place] 1.015 (1.002-1.0 30) Urine PH 6.5 (5.0-8.0) [...] /HPF High (0-8) Comprehensive Metabolic Panl 08/04/2022 [facility] Reference Lab Glucose 105 mg/dL High [...] 53 ML/MIN/1.7 3M2 7 Lipid Panel 08/04/2022 [facility] Reference Lab Cholesterol, Total 161 mg/dL (<200) Triglyceride 87 mg/dL (<150) HDL Chol 51 mg/dL (>39) LDL Cholesterol, Calculated 93 mg/dL (0-130) Non HDL Cholesterol (Calc) 110 mg/dL (<160) TSH 08/04/2022 [facility] Reference Lab TSH 4.31 uIU/mL High [...] sex. Procedures Date Code Description Status 12/28/2024 80737 Collection Of Venous Blood B y Venipuncture [...] Reason for Referral Status Appt Nguyễn e [facility] Cardiology (New Patients) AFIB Closed 12/06/[address] [place] [address] [phone] Gladis Davis MD BILROSSY HAND WITH QUESTION OF CARPAL TUNNEL SYNDROME Closed 07/09/2023 [address] [place] [address] [phone]
--- NOTE | 2025-05-17 15:25 | MHC.OFFVISCO ---
Intake Intake Visit Reasons: Anticoagulation Allergies Penicillins Allergy (Intermediate, Verified 05/17/25 15:18) RASH Medication List - Last Reconciled 05/17/25 by Samantha Potter, RN latanoprost 0.005% drps ophthalmic (eye) levothyroxine 150 mcg PO DAILY metoprolol succinate ER 50 mg PO DAILY mirtazapine 3.75 mg PO BEDTIME nifedipine ER 30 mg PO DAILY [occuvite PO] triamterene-hydrochlorothiazid 37.5-25 mg 1 cap PO DAILY warfarin 2.5 mg See Protocol PO DAILY Nursing Note INR: 2.7 in therapeutic range of 203 Medications and supplements reviewed No changes in health, diet, medications, or supplements, Denies any signs and symptoms of bleeding or bruising or clotting. Bleeding, bruising, clotting discussed Nutritional guidance given. Food list reviewed and given to pt. Dose: 2.5mg X 5 days and 5mg X 2 days (Wed & Sat) F/U INR: 4 weeks Patient verbalizes understanding of instructions given Coding Level of Care Code Est Patient Level 1 Diagnoses Current use of anticoagulant therapy Z79.01 Results AMB INR Fingerstick AMB INR Fingerstick 2.7 Last Edit by Samantha Potter, YONATHAN on 05/17/25 15:24 interface delay Assessment & Plan Assessment & Plan (1) Current use of anticoagulant therapy: Code(s): Z79.01 - care home (current) use of anticoagulants Category: Medical
[2025-05-18 14:13] LABS: Prothrombin Time Whole Bld POC 32.5 sec (11.1-13.5); ~PT, ~INR - Anti Coag Clinic 2.7 (0.9-1.1)
== END 2025-05-17 15:38 | disposition home or self-care (01) ==
LOC: HO.ACS 15:17
PROVIDERS: PCP Internal Medicine; Visit Provider Internal Medicine Medical Oncology
DX: Z79.01 Long term (current) use of anticoagulants (principal)